=== PATIENT | female | born 1975 | race Caucasian/White ===

== ENCOUNTER 2016-11-25 11:32 | Emergency (ER) | payer BC ==
[2016-11-25 11:50] VITALS: BP 119/82
--- NOTE | 2016-11-25 12:12 | ED Physician Documentation ---
PD HPI SKIN - Stated complaint Stated Complaint: FACIAL ABCESS - Chief complaint Chief Complaint: Wound - History obtained from History obtained from: Patient - History of Present Illness Timing - onset: How many days ago (2-3) Timing - duration: Days Timing - details: Gradual onset Location: Face (has sore right cheek that has slowly increased coouple days, draining some today.) Quality / character: Painful, Discolored (red), Swelling Associated symptoms: No: Fever, N/V/D Similar symptoms before: Has not had sx before Recently seen: Not recently seen Review of Systems Constitutional: denies: Fever, Chills GI: denies: Nausea, Vomiting PD PAST MEDICAL HISTORY - Past Medical History Past Medical History: Yes Endocrine/Autoimmune: None Psych: Depression, Anxiety - Present Medications Home Medications: Ambulatory Orders Medication Instructions Recorded Confirmed Dextroamphetamine/Amphetamine 11/25/16 [Adderall Xr 30 mg Capsule] Doxycycline Hyclate 100 mg PO 11/25/16 11/25/16 Mupirocin 1 applic TP TID #15 oint...g. 11/25/16 Propranolol HCl 20 mg PO 11/25/16 Sertraline HCl [Zoloft] 100 mg PO 11/25/16 Sulfamethox/Trimeth 800/160 1 each PO BID #14 tablet 11/25/16 [Bactrim Ds 800/160] buPROPion [Wellbutrin Sr] 150 mg PO BID 11/25/16 11/25/16 cloNIDine 0.2 MG PATCH 11/25/16 [Dagegmoi-Wcu-6] - Allergies Allergies/Adverse Reactions: Allergies Allergy/AdvReac Type Severity Reaction Status Date / Time No Known Drug Allergies Allergy Verified 11/25/16 11:46 - Social History Does the pt smoke?: No Smoking Status: Never smoker PD ED PE NORMAL - Vitals Vital signs reviewed: Yes - General General: Alert and oriented X 3, No acute distress, Well developed/nourished - HEENT HEENT: Ears normal, Pharynx benign - Neck Neck: Supple, no meningeal sign, No adenopathy - Derm Derm: Normal color, Warm and dry, Other (right cheek with redness and small local ulcerative lesion about 2 mm. Mild drainage. 2-3 mm area redness right upper forehead c/w early other infection. ) Results - Vitals Vitals: Vital Signs - 24 hr 11/25/16 11:47 Temperature 36.6 C Heart Rate 90 Respiratory 16 Rate Blood Pressure 119/82 H O2 Saturation 98 Oxygen O2 Source Room air PD MEDICAL DECISION MAKING - ED course Complexity details: considered differential (facial sore without underlying fluctuance. Looks likely staph. Will treat topical and oral. ), d/w patient Departure - Departure Disposition: 01 Home, Self Care Clinical Impression: Facial abscess Condition: Stable Record reviewed to determine appropriate education?: Yes Instructions: ED Staph Infec Abx Tx Only Follow-Up: Markos Marion MD [Primary Care Provider] - Prescriptions: Sulfamethox/Trimeth 800/160 [Bactrim Ds 800/160] 1 each PO BID #14 tablet Mupirocin 1 applic TP TID #15 oint...g. Comments: Use of Bactrim twice daily for a week for the infection. Also can use mupirocin topical antibiotic on the several sores. Also take a small dab of the mupirocin and working into your fingernail beds and a little around the rim of your nostrils as these can be hiding places for the germs as well. Recheck if not improving over the next few days. Tylenol or ibuprofen if needed for pains. Discharge Date/Time: 11/25/16 12:36
[2016-11-25] MEDS ORDERED: SULFAMETH/TRIMETH DS 800/160 MG TABLET PO STA (12:20)
[2016-11-25] MEDS ORDERED: SULFAMETH/TRIMETH DS 800/160 MG TABLET PO ONE (12:34)
== END 2016-11-25 12:36 | disposition home or self-care (01) ==
LOC: ED 11:32
DX: L02.01 Cutaneous abscess of face (principal)
CPT/HCPCS: 99283; A9270

== ENCOUNTER 2019-02-13 17:50 | Outpatient (CLI) | payer OTHER | END 2019-02-13 17:51 | disposition critical access hospital (66) | LOC: EMS 17:50 | PROVIDERS: ATTEND Surgery | DX: R45.89 Other symptoms and signs involving emotional state (principal) | CPT/HCPCS: A0425; A0429 ==

== ENCOUNTER 2019-02-13 18:07 | Emergency (ER) | payer BC, OTHER ==
[2019-02-13] MEDS ORDERED: KETOROLAC 30 MG/ML VIAL IVP STA (18:18)
[2019-02-13] MEDS ORDERED: KETAMINE 500 MG/10 ML VIAL IVP STA (18:19)
--- NOTE | 2019-02-13 18:21 | ED Physician Documentation ---
PD HPI MHE - Stated complaint Stated Complaint: DEPRESSION - Chief complaint Chief Complaint: MHE - History obtained from History obtained from: Patient - History of Present Illness Primary symptom: Depression (43-year-old woman with long-standing depression on Zoloft, Adderall. Over the last week or so she is been more depressed. She has no suicidal ideation. She has been compliant with her medications. She denies any substance issues. Her only other health issue is sciatica.) Review of Systems Constitutional: reports: Reviewed and negative Cardiac: reports: Reviewed and negative Respiratory: reports: Reviewed and negative PD PAST MEDICAL HISTORY - Past Medical History Endocrine/Autoimmune: None Psych: Depression, Anxiety - Present Medications Home Medications: Ambulatory Orders Medication Instructions Recorded Confirmed Dextroamphetamine/Amphetamine 2 tab PO DAILY 11/25/16 02/13/19 [Adderall Xr 30 mg Capsule] Propranolol HCl 20 mg PO DAILY 11/25/16 02/13/19 Sertraline HCl [Zoloft] 100 mg PO DAILY 11/25/16 02/13/19 buPROPion [Wellbutrin Sr] 150 mg PO BID 11/25/16 02/13/19 cloNIDine 0.2 MG PATCH 1 tab PO DAILY 11/25/16 02/13/19 [Pnkjlulj-Exv-4] Gabapentin 600 mg PO TID 02/13/19 02/13/19 Propranolol HCl 20 mg PO DAILY 02/13/19 02/13/19 diazePAM [Valium] 5 - 10 mg PO TID PRN #7 tablet 02/13/19 - Allergies Allergies/Adverse Reactions: Allergies Allergy/AdvReac Type Severity Reaction Status Date / Time No Known Drug Allergies Allergy Verified 02/13/19 18:18 - Social History Does the pt smoke?: No Smoking Status: Never smoker PD ED PE NORMAL - Vitals Vital signs reviewed: Yes - General General: Alert and oriented X 3, Other (Tearful but cooperative, pleasant) - HEENT HEENT: PERRL, EOMI - Neck Neck: Supple, no meningeal sign, No bony TTP - Neuro Neuro: Alert and oriented X 3, fund raiser 2-12 intact, No motor deficit, No sensory deficit, Normal speech Results - Vitals Vitals: Vital Signs - 24 hr 02/13/19 02/13/19 02/13/19 18:10 18:55 19:20 Temperature 37.1 C Heart Rate 66 75 62 Respiratory 20 16 16 Rate Blood Pressure 127/92 H 148/93 H 131/83 H O2 Saturation 100 100 100 Oxygen O2 Source Room air PD MEDICAL DECISION MAKING - ED course ED course: This is a 43-year-old woman with depression, no suicidal ideation. We discussed options including hospitalization which she declined. She think she will need something to help her sleep tonight and I also discussed the possibility of a trial of ketamine which she seemed to want to do. She was administered a dose of 0.5 mg/kg over 40 minutes. To this she had some intolerable side effects, she felt out of control, the infusion was stopped about three quarters of the way through. Subsequent to that, once the side effects were off she actually did feel better from a depression standpoint she was given 5 mg of Valium to go. Departure - Departure Disposition: 01 Home, Self Care Clinical Impression: Depression Qualifiers: Depression Type: major depressive disorder Major depression recurrence: recurrent Active/Remission status: currently active Major depression episode severity: moderate Qualified Code(s): F33.1 - Major depressive disorder, recur rent, moderate Condition: Good Record reviewed to determine appropriate education?: Yes Instructions: ED Depression Prescriptions: diazePAM [Valium] 5 - 10 mg PO TID PRN #7 tablet PRN Reason: Spasms Comments: Return anytime if worse, follow-up with Dr. Harding, call his office tomorrow. I would also consider counseling.
[2019-02-13 19:22] VITALS: BP 131/83
[2019-02-13] MEDS ORDERED: diazePAM 5 MG TABLET PO STA (19:28)
== END 2019-02-13 19:40 | disposition home or self-care (01) ==
LOC: EDUNIT# → ED 18:07
DX: F33.1 Major depressive disorder, recurrent, moderate (principal); T41.295A Adverse effect of other general anesthetics, initial encounter; Y92.538 Other ambulatory health services establishments as the place of occurrence of the external cause
CPT/HCPCS: 96374; 99283; A9270

== ENCOUNTER 2019-09-25 21:16 | Emergency (ER) | payer SELFPAY ==
[2019-09-25 21:28] VITALS: BP 124/78
[2019-09-25] MEDS ORDERED: CETIRIZINE 10 MG TABLET PO STA (21:48)
--- NOTE | 2019-09-25 21:48 | ED Physician Documentation ---
History of Present Illness - Stated complaint Stated Complaint: BUG BIT ON BACK - Chief complaint Chief Complaint: General - History obtained from History obtained from: Patient (The patient is a 43-year-old female who presents with a chief complaint of bug bite to the left side of her back patient thinks that she might of been stung by some sort of insect or possibly bitten by a spider she reports redness swelling and discomfort she did not try any treatment prior to arriva) Review of Systems Constitutional: reports: Reviewed and negative Eyes: reports: Reviewed and negative Ears: reports: Reviewed and negative Nose: reports: Reviewed and negative Throat: reports: Reviewed and negative Cardiac: reports: Reviewed and negative Respiratory: reports: Reviewed and negative GI: reports: Reviewed and negative : reports: Reviewed and negative Skin: reports: Bite / sting Musculoskeletal: reports: Reviewed and negative Neurologic: reports: Reviewed and negative Psychiatric: reports: Reviewed and negative Endocrine: reports: Reviewed and negative Immunocompromised: reports: Reviewed and negative PD PAST MEDICAL HISTORY - Past Medical History Past Medical History: Yes Cardiovascular: None Respiratory: None Neuro: None Endocrine/Autoimmune: None GI: None 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 : None HEENT: None Psych: Depression, Anxiety Musculoskeletal: None Derm: None - Past Surgical History Past Surgical History: Yes General: Appendectomy - Present Medications Home Medications: Ambulatory Orders Medication Instructions Recorded Confirmed Dextroamphetamine/Amphetamine 2 tab PO DAILY 11/25/16 02/13/19 [Adderall Xr 30 mg Capsule] Propranolol HCl 20 mg PO DAILY 11/25/16 02/13/19 Sertraline HCl [Zoloft] 100 mg PO DAILY 11/25/16 02/13/19 buPROPion [Wellbutrin Sr] 150 mg PO BID 11/25/16 02/13/19 cloNIDine 0.2 MG PATCH 1 tab PO DAILY 11/25/16 02/13/19 [Ojnleyav-Vla-6] Gabapentin 600 mg PO TID 02/13/19 02/13/19 Propranolol HCl 20 mg PO DAILY 02/13/19 02/13/19 diazePAM [Valium] 5 - 10 mg PO TID PRN #7 tablet 02/13/19 - Allergies Allergies/Adverse Reactions: Allergies Allergy/AdvReac Type Severity Reaction Status Date / Time No Known Drug Allergies Allergy Verified 02/13/19 18:18 - Social History Does the pt smoke?: No Smoking Status: Never smoker Does the pt drink ETOH?: Yes Does the pt have substance abuse?: No - Immunizations Immunizations are current?: No - POLST Patient has POLST: No PD ED PE NORMAL - Vitals Vital signs reviewed: Yes - General General: Alert and oriented X 3, No acute distress - HEENT HEENT: PERRL - Neck Neck: Supple, no meningeal sign - Cardiac Cardiac: RRR, No murmur - Respiratory Respiratory: Clear bilaterally - Abdomen Abdomen: Normal bowel sounds, Soft, Non tender, Non distended - Back Back: Other (4 x 4 centimeter circumferential area of erythema that is warm no fluctuance or induration or streaking mildly tender to palpation. Area marked circumferentially with a sterile surgical pen.) - Derm Derm: No rash (4 x 4 centimeter circumferential area of erythema that is warm no fluctuance or induration or streaking mildly tender to palpation) - Extremities Extremities: No deformity - Neuro Neuro: Alert and oriented X 3 - Psych Psych: Normal mood, Normal affect PD ED PE EXPANDED - Back Back visual: 1 - rash, swelling Results - Vitals Vitals: Vital Signs - 24 hr 09/25/19 21:26 Temperature 36.4 C L Heart Rate 73 Respiratory 17 Rate Blood Pressure 124/78 O2 Saturation 99 Oxygen O2 Source Room air PD MEDICAL DECISION MAKING - ED course Complexity details: reviewed results, re-evaluated patient, considered differential (Hymenoptera, insect envenomation, allergic reaction, Urticaria.), d/w patient, other (We will treat this patient with cool compresses oral Benadryl and follow-up with her primary care provider tomorrow or return to the emergency department with any concerns.) Departure - Departure Disposition: 01 Home, Self Care Clinical Impression: Allergic reaction Qualifiers: Encounter type: initial encounter Qualified Code(s): T78.40XA - Allergy, unspecified, initial encounter Insect bite Qualifiers: Encounter type: initial encounter Site of insect bite: unspecified site Qualified Code(s): W57.XXXA - Bitten or stung by nonvenomous insect and other nonvenomous arthropods, initial encounter Condition: Stable Instructions: ED Bite Sting Insect Local Allergic React Follow-Up: Alida Moore DO [Primary Care Provider] - Tomorrow Comments: use cold packs and take ibuprofen or tylenol for pain and benadryl as needed as well. follow up with your primary care provider tomorrow for a recheck. Discharge Date/Time: 09/25/19 21:58
[2019-09-25] MEDS ORDERED: IBUPROFEN 800 MG TABLET PO STA (21:49)
== END 2019-09-25 21:58 | disposition home or self-care (01) ==
LOC: ED 21:16
DX: S20.462A Insect bite (nonvenomous) of left back wall of thorax, initial encounter (principal); T78.49XA Other allergy, initial encounter; W57.XXXA Bitten or stung by nonvenomous insect and other nonvenomous arthropods, initial encounter
CPT/HCPCS: 99282; 99283; A9270

== ENCOUNTER 2021-03-18 23:03 | Emergency (ER) | payer MEDICAID ==
[2021-03-18 23:07] VITALS: BP 125/76
--- NOTE | 2021-03-18 23:24 | ED Physician Documentation ---
PD HPI HEENT - Stated complaint Stated Complaint: EAR PX, SORE THROAT - Chief complaint Chief Complaint: Heent - History obtained from History obtained from: Patient - History of Present Illness Timing - onset: Other (this evening) Timing - details: Gradual onset Location: Right ear, Throat Associated symptoms: No: Fever Recently seen: Not recently seen - Additional information Additional information: c/o sore throat and right ear pain that started earlier this evening. Denies fever. She is COVID vaccinated. Review of Systems Constitutional: denies: Fever Ears: reports: Ear pain Throat: reports: Sore throat Respiratory: denies: Dyspnea, Cough PD PAST MEDICAL HISTORY - Past Medical History Cardiovascular: None Respiratory: None Neuro: None Endocrine/Autoimmune: None GI: None DEAN OF EDUCATION: None : None HEENT: None Psych: Depression, Anxiety Musculoskeletal: None Derm: None - Past Surgical History Past Surgical History: Yes General: Appendectomy - Present Medications Home Medications: Ambulatory Orders Medication Instructions Recorded Confirmed Dextroamphetamine/Amphetamine 2 tab PO DAILY 11/25/16 02/13/19 [Adderall Xr 30 mg Capsule] Propranolol HCl 20 mg PO DAILY 11/25/16 02/13/19 Sertraline HCl [Zoloft] 100 mg PO DAILY 11/25/16 02/13/19 buPROPion [Wellbutrin Sr] 150 mg PO BID 11/25/16 02/13/19 cloNIDine 0.2 MG PATCH 1 tab PO DAILY 11/25/16 02/13/19 [Tqqonoro-Gmo-0] Gabapentin 600 mg PO TID 02/13/19 02/13/19 Propranolol HCl 20 mg PO DAILY 02/13/19 02/13/19 diazePAM [Valium] 5 - 10 mg PO TID PRN #7 tablet 02/13/19 - Allergies Allergies/Adverse Reactions: Allergies Allergy/AdvReac Type Severity Reaction Status Date / Time No Known Drug Allergies Allergy Verified 03/18/21 23:05 - Social History Does the pt smoke?: No Smoking Status: Never smoker Does the pt drink ETOH?: Yes Does the pt have substance abuse?: No - Immunizations Immunizations are current?: No - POLST Patient has POLST: No PD ED PE NORMAL - Vitals Vital signs reviewed: Yes - General General: Alert and oriented X 3, No acute distress, Well developed/nourished - HEENT HEENT: Ears normal, Moist mucous membranes, Pharynx benign - Neck Neck: Supple, no meningeal sign - Respiratory Respiratory: No respiratory distress, Clear bilaterally Results - Vitals Vitals: Oxygen O2 Source Room air - Labs Labs: Microbiology 03/18/21 23:44 Group A Strep Throat Culture - Preliminary Throat CULTURE IN PROGRESS. RESULTS TO FOLLOW. Laboratory Tests 03/18/21 23:44 Group A Strep Rapid Negative PD MEDICAL DECISION MAKING - ED course Complexity details: considered differential, d/w patient ED course: normal HEENT exam including posterior oropharynx and bilateral TM/external auditory canals. Rapid strep is negative. Lungs CTA bilaterally. Viral URI suspected, results d/w patient, return precautions discussed. Departure - Departure Disposition: 01 Home, Self Care Clinical Impression: Pharyngitis Condition: Good Instructions: ED Pharyngitis Viral Report Pending Forms: Activity restrictions Discharge Date/Time: 03/19/21 00:14
[2021-03-18 23:58] LABS: RAPID STREP SCREEN Negative (Negative)
== END 2021-03-19 00:14 | disposition home or self-care (01) ==
LOC: ED 23:03
DX: J02.9 Acute pharyngitis, unspecified (principal)
CPT/HCPCS: 87070; 87430; 99282; 99283

== ENCOUNTER 2021-08-16 16:56 | Emergency (ER) | payer MEDICAID ==
[2021-08-16] MEDS ORDERED: ONDANSETRON 4 MG/2 ML VIAL IVP STA (17:23)
[2021-08-16] MEDS ORDERED: HYDROmorphone 1 MG/ML CARPUJECT IVP STA ×2 (17:23→20:05)
--- NOTE | 2021-08-16 17:23 | ED Physician Documentation ---
PD HPI ABD PAIN - Stated complaint Stated Complaint: R ABD PX - Chief complaint Chief Complaint: Abd Pain - History obtained from History obtained from: Patient - Additional information Additional information: 45-year-old woman who had an appendectomy about 2 years ago presents with sudden onset right mid to upper abdominal pain starting around 4 PM today. It is not associated with nausea, eating, urinary complaints. She has been constipated for the last few days for unclear reasons. Denies possibility of . No radiation of the pain. Nothing makes it better or worse. 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 : None HEENT: None Psych: Depression, Anxiety Musculoskeletal: None Derm: None - Past Surgical History Past Surgical History: Yes General: Appendectomy - Present Medications Home Medications: Ambulatory Orders Medication Instructions Recorded Confirmed Dextroamphetamine/Amphetamine 2 tab PO DAILY 11/25/16 02/13/19 [Adderall Xr 30 mg Capsule] Propranolol HCl 20 mg PO DAILY 11/25/16 02/13/19 Sertraline HCl [Zoloft] 100 mg PO DAILY 11/25/16 02/13/19 buPROPion [Wellbutrin Sr] 150 mg PO BID 11/25/16 02/13/19 cloNIDine 0.2 MG PATCH 1 tab PO DAILY 11/25/16 02/13/19 [Pzicxumw-Ous-4] Gabapentin 600 mg PO TID 02/13/19 02/13/19 Propranolol HCl 20 mg PO DAILY 02/13/19 02/13/19 diazePAM [Valium] 5 - 10 mg PO TID PRN #7 tablet 02/13/19 Oxycodone HCl/Acetaminophen 1 - 2 each PO Q6H PRN #10 tablet 08/16/21 [Percocet 5-325 mg Tablet] - Allergies Allergies/Adverse Reactions: Allergies Allergy/AdvReac Type Severity Reaction Status Date / Time No Known Drug Allergies Allergy Verified 08/16/21 17:12 - Social History Does the pt smoke?: No Smoking Status: Never smoker Does the pt drink ETOH?: Yes Does the pt have substance abuse?: No - Immunizations Immunizations are current?: No - POLST Patient has POLST: No PD ED PE NORMAL - Vitals Vital signs reviewed: Yes - General General: Alert and oriented X 3, No acute distress - HEENT HEENT: PERRL, EOMI - Neck Neck: Supple, no meningeal sign, No bony TTP - Cardiac Cardiac: RRR, No murmur - Respiratory Respiratory: No respiratory distress, Clear bilaterally - Abdomen Abdomen: Normal bowel sounds, Soft, Other (Mild tenderness in the right upper quadrant and right mid abdomen without surgical signs, equivocal Houser sign I would say.) - Back Back: No CVA TTP, No spinal TTP - Derm Derm: Normal color, Warm and dry - Extremities Extremities: No edema, No calf tenderness / cord - Neuro Neuro: Alert and oriented X 3, Normal speech Results - Vitals Vitals: Vital Signs - 24 hr 08/16/21 08/16/21 17:05 19:12 Temperature 36.3 C L 36.5 C Heart Rate 78 75 Respiratory 14 18 Rate Blood Pressure 128/79 119/75 O2 Saturation 100 96 Oxygen O2 Source Room air - Labs Labs: Laboratory Tests 08/16/21 08/16/21 08/16/21 17:09 17:44 17:44 WBC 6.5 RBC 4.56 Hgb 13.9 Hct 40.3 MCV 88.4 MCH 30.5 MCHC 34.5 RDW 12.5 Plt Count 230 MPV 8.8 Neut # (Auto) 3.9 Lymph # (Auto) 2.0 [place] # (Auto) 0.4 Eos # (Auto) 0.2 Baso # (Auto) 0.0 Absolute Nucleated RBC 0.00 Nucleated RBC % 0.0 Sodium 136 Potassium 3.8 Chloride 102 Carbon Dioxide 25 Anion Gap 9.0 BUN 9 Creatinine 0.8 Estimated GFR (MDRD) 78 L Glucose 89 Calcium 9.1 Total Bilirubin 0.6 AST 22 ALT 22 Alkaline Phosphatase 62 Total Protein 6.9 Albumin 4.2 Globulin 2.7 Albumin/Globulin Ratio 1.6 Lipase 32 Urine Color YELLOW Urine Clarity CLEAR Urine pH 6.0 Ur Specific [place] 1.010 Urine Protein NEGATIVE Urine Glucose (UA) NEGATIVE Urine Ketones NEGATIVE Urine Occult Blood NEGATIVE Urine Nitrite NEGATIVE Urine Bilirubin NEGATIVE Urine Urobilinogen 0.2 (NORMAL) Ur Leukocyte Esterase NEGATIVE Ur Microscopic Review NOT INDICATED Urine Culture Comments NOT INDICATED Urine HCG, Qual NEGATIVE - Rads (name of study) CT A/P Radiology: EMP read contemporaneously PD MEDICAL DECISION MAKING - ED course ED course: 45-year-old woman with sudden onset right mid abdominal pain. Fairly benign exam, labs negative, test negative. CT suggesting recently ruptured hemorrhagic cyst. Nontender on reexamination prior to discharge and comfortable after pain control here. Departure - Departure Disposition: 01 Home, Self Care Clinical Impression: Abdominal pain Condition: Good Record reviewed to determine appropriate education?: Yes Instructions: ED Pelvic Pain [facility] Prescriptions: Oxycodone HCl/Acetaminophen [Percocet 5-325 mg Tablet] 1 - 2 each PO Q6H PRN #10 tablet PRN Reason: pain Comments: I sent your prescription electronically to [facility] in [place]. As discussed your labs all look very normal, CT suggesting a ruptured right ovarian cyst which I suspect is the cause of your pain. In that case your pain should be gone over the next couple of days. Return for new or worsening symptoms and follow-up with your primary care physician in about 3 days for rec heck. I am prescribing a short course of narcotic pain medication for you. These are potentially dangerous and addictive medications that should be used carefully. These medications may constipate you. Take an jrny-uob-bofrydi stool softener (docusate) twice daily with plenty of water while taking these medications. If you go 24 hours without a bowel movement, take [id number]-[id number] miralax, per p gal instructions. Do not drink or drive while taking these medications. If you received narcotic or sedating medications while in the emergency department, do not drive for 24 hours. Store this medication in a safe, secure place and out of reach of children. It is a violation of federal law to give or sell this medication to another person or to use in a manner other than prescribed. The ED will not refill narcotic prescriptions, including prescriptions lost or stolen. To dispose of unwanted medications: 1. [facility] at [address] in [place] has a medication drop box. They accept prescription medications (in pill form) Monday through Monday 9:00 a.m. to 5:00 p.m. 2. The [facility] accepts prescription medications (in pill form only) for disposal year round. Call for more information. 3. Contact the [facility] for the next [facility] sponsored prescription drug collection event. , [phone], or [phone]; Note that many narcotic pain relievers also contain Tylenol/acetaminophen. Please ensure that your total dose of acetaminophen from all sources does not exceed 3 g (3000 mg) per day. Discharge Date/Time: 08/16/21 20:26
[2021-08-16 17:31] LABS: BILIRUBIN,URINE NEGATIVE (NEGATIVE); GLUCOSE, URINE (UA) NEGATIVE (NEGATIVE); KETONES,URINE (UA) NEGATIVE (NEGATIVE); LEUKOCYTE ESTERASE, URINE NEGATIVE (NEGATIVE); NITRITE,URINE NEGATIVE (NEGATIVE); OCCULT BLOOD,URINE NEGATIVE (NEGATIVE); PROTEIN,URINE NEGATIVE (NEGATIVE); UROBILINOGEN,URINE 0.2 (NORMAL) E.U./dL (NORMAL)
[2021-08-16 17:36] LABS: CLARITY,URINE CLEAR (CLEAR); HCG UR QUAL NEGATIVE
[2021-08-16 17:49] LABS: BASOPHILS % (AUTO) 0.5 %; EOSINOPHILS # (AUTO) 0.2 10^3/uL (0.0-0.7); EOSINOPHILS % (AUTO) 2.3 %; HCT - HEMATOCRIT 40.3 % (37.0-47.0); HGB - HEMOGLOBIN 13.9 g/dL (12.0-16.0); LYMPHOCYTES % (AUTO) 31.3 %; MEAN CORPUSCULAR HEMOGLOBIN 30.5 pg (27.0-31.0); MEAN CORPUSCULAR HGB CONC 34.5 g/dL (32.0-36.0); MEAN CORPUSCULAR VOLUME 88.4 fL (81.0-99.0); MEAN PLATELET VOLUME 8.8 fL (7.9-10.8); MONOCYTES # (AUTO) 0.4 10^3/uL (0.0-1.0); MONOCYTES % (AUTO) 6.3 %; NEUTROPHILS # (AUTO) 3.9 10^3/uL (1.5-6.6); NEUTROPHILS % (AUTO) 59.4 %; PLT - PLATELET COUNT 230 10^3/uL (130-450); RED BLOOD COUNT 4.56 10^6/uL (4.20-5.40); RED CELL DISTRIBUTION WIDTH 12.5 % (12.0-15.0); WHITE BLOOD COUNT 6.5 x10^3/uL (4.8-10.8)
[2021-08-16 18:12] LABS: ALBUMIN 4.2 g/dL (3.2-5.5); ALBUMIN/GLOBULIN RATIO 1.6 (1.0-2.2); BILIRUBIN,TOTAL 0.6 mg/dL (0.2-1.0); CALCIUM 9.1 mg/dL (8.5-10.3); CREATININE 0.8 mg/dL (0.4-1.0); POTASSIUM 3.8 mmol/L (3.5-5.0); TOTAL PROTEIN 6.9 g/dL (6.7-8.2)
[2021-08-16] MEDS ORDERED: IOPAMIDOL-300 100 ML VIAL ONE (18:43)
[2021-08-16 19:16] VITALS: BP 119/75
[2021-08-16] MEDS ORDERED: KETOROLAC 15 MG/ML VIAL IVP STA (19:22)
--- NOTE | 2021-08-16 19:30 | CT Report ---
PROCEDURE: Abdomen/Pelvis W INDICATIONS: IV only, R abd pain CONTRAST: IV CONTRAST: Isovue 300 ml: 100 PO CONTRAST: *NO PO CONTRAST TECHNIQUE: After the administration of intravenous contrast, 5 mm thick sections acquired from the diaphragms to the symphysis. 5 mm thick coronal and sagittal reformats were acquired. For radiation dose reducti on, the following was used: automated exposure control, adjustment of mA and/or kV according to simone ent size. COMPARISON: None. FINDINGS: Image quality: Excellent. ABDOMEN: Lung bases: Lung bases are clear. Heart size is normal. Solid organs: Liver and spleen are normal in size and enhancement. Gallbladder is normal Biliary s ystem is non dilated. Pancreas enhances normally. No adrenal nodules. Kidneys demonstrate normal s ize and enhancement, without hydronephrosis. Peritoneum and bowel: No pericolonic or mesenteric inflammatory changes. No findings of appendicitis or other acute enteric process. Nodes and vessels: No retroperitoneal or mesenteric adenopathy by si ze criteria. Aorta and inferior vena cava are normal in size. Miscellaneous: No ventral hernias. PELVIS: Small volume free pelvic fluid in the right adnexa and right cul-de-sac. Heterogenous uterine attenua tion which may represent fibroids or potentially adenomyosis. Ovaries are normal. Bladder unremarkabl e. Shoulders unremarkable or inguinal lymph nodes. IMPRESSION: No acute finding. Small volume right pelvic free fluid is within physiologic normal limits but is of intermediate densi ty and may represent a ruptured hemorrhagic cyst. Probable multifibroid uterus. Reviewed by: Akbar Serrano MD on 08/16/2021 7:28 PM PDT Approved by: Akbar Serrano MD on 08/16/2021 7:28 PM PDT Station ID: [id number]
[2021-08-16] MEDS ORDERED: oxyCODONE/ACET 5/325 Prepack 4 PO STA (20:05)
[2021-08-16] MEDS ORDERED: IOPAMIDOL-300 100 ML VIAL IVP ONE (21:46)
== END 2021-08-16 20:26 | disposition home or self-care (01) ==
LOC: ED 16:56
DX: R10.11 Right upper quadrant pain (principal)
CPT/HCPCS: 36415; 74177; 80053; 81003; 81025; 83690; 85025; 96374; 96375; 96376; 99283; 99284; J1170; Q9967; 81001; 83735; 87086

== ENCOUNTER 2021-12-17 16:39 | Outpatient (CLI) | payer MEDICAID | END 2021-12-17 16:40 | disposition critical access hospital (66) | LOC: EMS 16:39 | DX: R07.9 Chest pain, unspecified (principal); R11.2 Nausea with vomiting, unspecified; R19.7 Diarrhea, unspecified | CPT/HCPCS: A0425; A0427; A0999 ==

== ENCOUNTER 2021-12-17 16:51 | Emergency (ER) | payer MEDICAID ==
--- OUTSIDE RECORDS SUMMARY | 2021-12-17 17:01 | EXTERNAL MEDICAL SUMMARY RPT | Continuity of Care Document ---
:1975 Author Organization [facility] Address [address] [place] [address] Phone Allergies No information. Encounters No information. Functional Status No information. Immunizations No information. Medications No information. Problems No information. Procedures No information. Results/Labs test date author facility value unit interpret ation Result panel 1 (unknown) (no (unknown) (unknown) (no value) (units (unk nown) date) unknown) (unknown) (no (unknown) (unknown) (no value) (units (unk nown) date) unknown) (unknown) (no (unknown) (unknown) [place], [place] (units ( unknown) date) [id number] unknown) (unknown) (no (unknown) (unknown) Draft (units (unkno wn) date) unknown) (unknown) (no (unknown) (unknown) [facility] ([facility] unknown) (unknown) (no (unknown) (unknown) Internal (units (unkno wn) date) Medicine Office unknown) Visit (unknown) (no (unknown) (unknown) (no value) (units (unk nown) date) unknown) (unknown) (no (unknown) (unknown) [phone] (units (unkno wn) date) unknown) (unknown) (no (unknown) (unknown) 11/04/21 (units (unkno wn) date) unknown) (unknown) (no (unknown) (unknown) Age/Sex: 45 / F (units (unknown) date) Date of unknown) Service: (unknown) (no (unknown) (unknown) Allergies (units (unkn own) date) unknown) (unknown) (no (unknown) (unknown) Attending Dr: (units ( unknown) date) Mitch Alejandra MD unknown) (unknown) (no (unknown) (unknown) : 1975 (units (unknown) date) Acct:[id number] unknown) (unknown) (no (unknown) (unknown) DUST MITES (units (unk nown) date) Allergy (Unknown, unknown) Uncoded 05/14/19 14:15) (unknown) (no (unknown) (unknown) Dept at (units (unkno wn) date) . unknown) (unknown) (no (unknown) (unknown) Documented By: (units (unknown) date) Mitch Alejandra MD unknown) 11/04/21 1418 (unknown) (no (unknown) (unknown) Intake (units (unkno wn) date) unknown) (unknown) (no (unknown) (unknown) Loc: [facility] (units (unkno wn) date) unknown) (unknown) (no (unknown) (unknown) Medical History (units (unknown) date) (Updated 05/18/19 unknown) @ 17:30 by Amanda Burton RN) (unknown) (no (unknown) (unknown) No pertinent (units (u nknown) date) past surgical unknown) history (unknown) (no (unknown) (unknown) PFSH (units (unkno wn) date) unknown) (unknown) (no (unknown) (unknown) POLLEN Allergy (units (unknown) date) (Unknown, Uncoded unknown) 05/14/19 14:15) (unknown) (no (unknown) (unknown) Patient denies (units (unknown) date) medical problems unknown) (unknown) (no (unknown) (unknown) Patient: (units (unkno wn) date) Kaylah Sampson unknown) MR#: [id number] (unknown) (no (unknown) (unknown) Reason For Visit (units (unknown) date) unknown) (unknown) (no (unknown) (unknown) Signed By: (units (unk nown) date) unknown) (unknown) (no (unknown) (unknown) Smoking Status: (units (unknown) date) Former smoker unknown) (unknown) (no (unknown) (unknown) Surgical History (units (unknown) date) (Reviewed unknown) 05/17/19 @ 20:36 by GURWINDER Boudreaux) (unknown) (no (unknown) (unknown) This note may (units ( unknown) date) have been all or unknown) partially generated using voice recognition (unknown) (no (unknown) (unknown) Tobacco + (units (unkn own) date) Substance Use unknown) (unknown) (no (unknown) (unknown) Tobacco Status (units (unknown) date) unknown) (unknown) (no (unknown) (unknown) 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 (units (unknown) date) If there are any unknown) questions, please contact the Medical Records (unknown) (no (unknown) (unknown) may occur. (units (unk nown) date) Occasional unknown) wrong-word or 'sound-alike' substitutions may have (unknown) (no (unknown) (unknown) mold [MOLD] (units (un known) date) Allergy (Unknown, unknown) Verified 05/14/19 14:15) (unknown) (no (unknown) (unknown) occurred due to (units (unknown) date) the inherent unknown) limitations of voice recognition software. Please (unknown) (no (unknown) (unknown) read the note (units ( unknown) date) carefully and unknown) recognize, using context, where these substitutions (unknown) (no (unknown) (unknown) software. 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 errors Result panel 2 (unknown) (no (unknown) (unknown) (no value) (units (unk nown) date) unknown) (unknown) (no (unknown) (unknown) (no value) (units (unk nown) date) unknown) (unknown) (no (unknown) (unknown) [facility] (units ( unknown) date) [id number] unknown) (unknown) (no (unknown) (unknown) Draft (units (unkno wn) date) unknown) (unknown) (no (unknown) (unknown) [facility]) (unknown) (no (unknown) (unknown) Internal Medicine (units (unknown) date) Office Visit unknown) (unknown) (no (unknown) (unknown) (no value) (units (unk nown) date) unknown) (unknown) (no (unknown) (unknown) [phone] (units (unkno wn) date) unknown) (unknown) (no (unknown) (unknown) 11/04/21 (units (unkno wn) date) unknown) (unknown) (no (unknown) (unknown) 11/04/21 [History (units (unknown) date) Confirmed unknown) 11/04/21] (unknown) (no (unknown) (unknown) 11/04/21] (units (unkn own) date) unknown) (unknown) (no (unknown) (unknown) Age/Sex: 45 / F (units (unknown) date) Date of Service: unknown) (unknown) (no (unknown) (unknown) Allergies (units (unkn own) date) unknown) (unknown) (no (unknown) (unknown) Attending Dr: (units ( unknown) date) Mitch Alejandra MD unknown) (unknown) (no (unknown) (unknown) Confirmed (units (unkn own) date) 11/04/21] unknown) (unknown) (no (unknown) (unknown) : 1975 (units (unknown) date) Acct:[id number] unknown) (unknown) (no (unknown) (unknown) DUST MITES (units (unk nown) date) Allergy (Unknown, unknown) Uncoded 11/04/21 14:20) (unknown) (no (unknown) (unknown) Dept at (units (unkno wn) date) . unknown) (unknown) (no (unknown) (unknown) Documented By: (units (unknown) date) Mitch Alejandra MD unknown) 11/04/21 1418 (unknown) (no (unknown) (unknown) Establish Care (units (unknown) date) unknown) (unknown) (no (unknown) (unknown) GI Issues (units (unkn own) date) unknown) (unknown) (no (unknown) (unknown) Intake (units (unkno wn) date) unknown) (unknown) (no (unknown) (unknown) Intake Note: (units (u nknown) date) unknown) (unknown) (no (unknown) (unknown) Intake performed (units (unknown) date) by: Norma Pascal unknown) (unknown) (no (unknown) (unknown) Intake- Clincial (units (unknown) date) Staff unknown) (unknown) (no (unknown) (unknown) Loc: [facility] (units (unkno wn) date) unknown) (unknown) (no (unknown) (unknown) Medical History (units (unknown) date) (Updated 05/18/19 unknown) @ 17:30 by Amanda Burton RN) (unknown) (no (unknown) (unknown) Medications (units (un known) date) unknown) (unknown) (no (unknown) (unknown) Meet and Greet (units (unknown) date) unknown) (unknown) (no (unknown) (unknown) New Patient (units (un known) date) unknown) (unknown) (no (unknown) (unknown) No pertinent past (units (unknown) date) surgical history unknown) (unknown) (no (unknown) (unknown) PFSH (units (unkno wn) date) unknown) (unknown) (no (unknown) (unknown) PO QPM ##0 (units (unk nown) date) 05/24/16 [History unknown) Confirmed 11/04/21] (unknown) (no (unknown) (unknown) POLLEN Allergy (units (unknown) date) (Unknown, Uncoded unknown) 11/04/21 14:20) (unknown) (no (unknown) (unknown) Patient denies (units (unknown) date) medical problems unknown) (unknown) (no (unknown) (unknown) Patient: (units (unkno wn) date) Kaylah Sampson unknown) MR#: [id number] (unknown) (no (unknown) (unknown) Potential (units (unkn own) date) referral to GI? unknown) (unknown) (no (unknown) (unknown) QPM ##0 05/24/16 (units (unknown) date) [History Confirmed unknown) 11/04/21] (unknown) (no (unknown) (unknown) Reason For Visit (units (unknown) date) unknown) (unknown) (no (unknown) (unknown) Review/Discuss (units (unknown) date) unknown) (unknown) (no (unknown) (unknown) Review/Discuss. (units (unknown) date) unknown) (unknown) (no (unknown) (unknown) Signed By: (units (unk nown) date) unknown) (unknown) (no (unknown) (unknown) Smoking Status: (units (unknown) date) Former smoker unknown) (unknown) (no (unknown) (unknown) Surgical History (units (unknown) date) (Reviewed 05/17/19 unknown) @ 20:36 by GURWINDER Boudreaux) (unknown) (no (unknown) (unknown) This note may (units ( unknown) date) have been all or unknown) partially generated using voice recognition (unknown) (no (unknown) (unknown) Tobacco + (units (unkn own) date) Substance Use unknown) (unknown) (no (unknown) (unknown) Tobacco Status (units (unknown) date) unknown) (unknown) (no (unknown) (unknown) 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- unknown) (unknown) (no (unknown) (unknown) [History (units (unkno wn) date) Confirmed unknown) 11/04/21] (unknown) (no (unknown) (unknown) bupropion HCl 150 (units (unknown) date) mg 24 hr tablet, unknown) extended release 150 mg PO DAILY 11/04/21 (unknown) (no (unknown) (unknown) cholecalciferol (units (unknown) date) (vitamin D3) 50 unknown) mcg (2,000 unit) tablet (Vitamin D3) 4,000 unit (unknown) (no (unknown) (unknown) clonidine HCl 0.2 (units (unknown) date) mg tablet 0.2 mg unknown) PO BEDTIME 09/17/18 [History Confirmed (unknown) (no (unknown) (unknown) cyanocobalamin (units (unknown) date) (vitamin B-12) unknown) 5,000 mcg sublingual tablet (Vitamin B-12) 5,000 (unknown) (no (unknown) (unknown) dextroamphetamine (units (unknown) date) -amphetamine 15 mg unknown) tablet 15 mg PO QPM 11/04/21 [History (unknown) (no (unknown) (unknown) dextroamphetamine (units (unknown) date) -amphetamine ER 30 unknown) mg 24hr capsule,extend release 30 mg PO QAM (unknown) (no (unknown) (unknown) gabapentin 300 mg (units (unknown) date) capsule unknown) (Neurontin) 600 mg PO TID #30 caps 12/25/19 [Rx (unknown) (no (unknown) (unknown) have occurred. (units (unknown) date) If there are any unknown) questions, please contact the Medical Records (unknown) (no (unknown) (unknown) lorazepam 1 mg (units (unknown) date) tablet (Ativan) 1 unknown) mg PO TID PRN anxiety #10 tabs 05/12/19 [Rx (unknown) (no (unknown) (unknown) may occur. (units (unk nown) date) Occasional unknown) wrong-word or 'sound-alike' substitutions may have (unknown) (no (unknown) (unknown) mcg sublingual (units (unknown) date) QPM ##0 10/03/16 unknown) [History Confirmed 11/04/21] (unknown) (no (unknown) (unknown) mold [MOLD] (units (un known) date) Allergy (Unknown, unknown) Verified 11/04/21 14:20) (unknown) (no (unknown) (unknown) occurred due to (units (unknown) date) the inherent unknown) limitations of voice recognition software. Please (unknown) (no (unknown) (unknown) omega (units (unkno wn) date) [id number]-fish oil unknown) 1,000 mg (120 mg-180 mg) capsule (Fish Oil) 1,000 mg PO (unknown) (no (unknown) (unknown) propranolol 20 mg (units (unknown) date) tablet 20 mg PO unknown) BID PRN anxiety/panic 05/12/19 [History (unknown) (no (unknown) (unknown) read the note (units ( unknown) date) carefully and unknown) recognize, using context, where these substitutions (unknown) (no (unknown) (unknown) sertraline 100 mg (units (unknown) date) tablet 150 mg PO unknown) DAILY 11/04/21 [History Confirmed 11/04/21] (unknown) (no (unknown) (unknown) software. 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 errors Result panel 3 (unknown) (no (unknown) (unknown) (no value) (units (unk nown) date) unknown) (unknown) (no (unknown) (unknown) (no value) (units (unk nown) date) unknown) (unknown) (no (unknown) (unknown) (no value) (units (unk nown) date) unknown) (unknown) (no (unknown) (unknown) 11/04/21 (units (unkno wn) date) unknown) (unknown) (no (unknown) (unknown) 14:33 (units (unkno wn) date) unknown) (unknown) (no (unknown) (unknown) [facility] (units ( unknown) date) [id number] unknown) (unknown) (no (unknown) (unknown) Draft (units (unkno wn) date) unknown) (unknown) (no (unknown) (unknown) [facility]) (unknown) (no (unknown) (unknown) Internal Medicine (units (unknown) date) Office Visit unknown) (unknown) (no (unknown) (unknown) (no value) (units (unk nown) date) unknown) (unknown) (no (unknown) (unknown) [phone] (units (unkno wn) date) unknown) (unknown) (no (unknown) (unknown) 11/04/21 (units (unkno wn) date) unknown) (unknown) (no (unknown) (unknown) 11/04/21 [History (units (unknown) date) Confirmed unknown) 11/04/21] (unknown) (no (unknown) (unknown) 11/04/21] (units (unkn own) date) unknown) (unknown) (no (unknown) (unknown) Age/Sex: 45 / F (units (unknown) date) Date of Service: unknown) (unknown) (no (unknown) (unknown) Allergies (units (unkn own) date) unknown) (unknown) (no (unknown) (unknown) Attending Dr: (units ( unknown) date) Mitch Alejandra MD unknown) (unknown) (no (unknown) (unknown) BMI 25.9 (units (un known) date) unknown) (unknown) (no (unknown) (unknown) BP 92/72 (units (un known) date) unknown) (unknown) (no (unknown) (unknown) Blood Pressure (units (unknown) date) Location Lt unknown) brachial (unknown) (no (unknown) (unknown) Confirmed (units (unkn own) date) 11/04/21] unknown) (unknown) (no (unknown) (unknown) : 1975 (units (unknown) date) Acct:[id number] unknown) (unknown) (no (unknown) (unknown) DUST MITES (units (unk nown) date) Allergy (Unknown, unknown) Uncoded 11/04/21 14:20) (unknown) (no (unknown) (unknown) Date of Last (units (u nknown) date) Menstrual Period: unknown) 10/25/21 (unknown) (no (unknown) (unknown) Dept at (units (unkno wn) date) . unknown) (unknown) (no (unknown) (unknown) Documented By: (units (unknown) date) Mitch Alejandra MD unknown) 11/04/21 1418 (unknown) (no (unknown) (unknown) Establish Care (units (unknown) date) unknown) (unknown) (no (unknown) (unknown) GI Issues (units (unkn own) date) unknown) (unknown) (no (unknown) (unknown) Hasn't been to (units (unknown) date) doc in a while. 45 unknown) (unknown) (no (unknown) (unknown) Height 5 ft 9 (units (unknown) date) in unknown) (unknown) (no (unknown) (unknown) Intake (units (unkno wn) date) unknown) (unknown) (no (unknown) (unknown) Intake Note: (units (u nknown) date) unknown) (unknown) (no (unknown) (unknown) Intake performed (units (unknown) date) by: Norma Pascal unknown) (unknown) (no (unknown) (unknown) Intake- Clincial (units (unknown) date) Staff unknown) (unknown) (no (unknown) (unknown) Is last menstrual (units (unknown) date) period known: Yes unknown) (unknown) (no (unknown) (unknown) Last Menstural (units (unknown) date) Cycle + Details unknown) (unknown) (no (unknown) (unknown) Loc: [facility] (units (unkno wn) date) unknown) (unknown) (no (unknown) (unknown) Medical History (units (unknown) date) (Updated 05/18/19 unknown) @ 17:30 by Amanda Burton RN) (unknown) (no (unknown) (unknown) Medications (units (un known) date) unknown) (unknown) (no (unknown) (unknown) Meet and Greet (units (unknown) date) unknown) (unknown) (no (unknown) (unknown) New Patient (units (un known) date) unknown) (unknown) (no (unknown) (unknown) No pertinent past (units (unknown) date) surgical history unknown) (unknown) (no (unknown) (unknown) Oxygen Delivery (units (unknown) date) Method room air unknown) (unknown) (no (unknown) (unknown) PFSH (units (unkno wn) date) unknown) (unknown) (no (unknown) (unknown) PO QPM ##0 (units (unk nown) date) 05/24/16 [History unknown) Confirmed 11/04/21] (unknown) (no (unknown) (unknown) POLLEN Allergy (units (unknown) date) (Unknown, Uncoded unknown) 11/04/21 14:20) (unknown) (no (unknown) (unknown) Patient denies (units (unknown) date) medical problems unknown) (unknown) (no (unknown) (unknown) Patient: (units (unkno wn) date) Kaylah Sampson unknown) MR#: [id number] (unknown) (no (unknown) (unknown) Position (units (unkno wn) date) Sitting unknown) (unknown) (no (unknown) (unknown) Potential (units (unkn own) date) referral to GI? unknown) (unknown) (no (unknown) (unknown) Pulse 79 (units (un known) date) unknown) (unknown) (no (unknown) (unknown) Pulse Oximetry (units (unknown) date) (%) 98 unknown) (unknown) (no (unknown) (unknown) Pulse Source (units (u nknown) date) Monitor unknown) (unknown) (no (unknown) (unknown) QPM ##0 05/24/16 (units (unknown) date) [History Confirmed unknown) 11/04/21] (unknown) (no (unknown) (unknown) Reason For Visit (units (unknown) date) unknown) (unknown) (no (unknown) (unknown) Review/Discuss (units (unknown) date) unknown) (unknown) (no (unknown) (unknown) Review/Discuss. (units (unknown) date) unknown) (unknown) (no (unknown) (unknown) Signed By: (units (unk nown) date) unknown) (unknown) (no (unknown) (unknown) Smoking Status: (units (unknown) date) Former smoker unknown) (unknown) (no (unknown) (unknown) States her (units (unk nown) date) psychiatrist use unknown) to fill her meds. (unknown) (no (unknown) (unknown) States may need a (units (unknown) date) lot of things unknown) done. (unknown) (no (unknown) (unknown) States psych doc (units (unknown) date) would like PCP to unknown) manage. 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 unknown) (unknown) (no (unknown) (unknown) Weight 176 lb (units (unknown) date) unknown) (unknown) (no (unknown) (unknown) [History (units (unkno wn) date) Confirmed unknown) 11/04/21] (unknown) (no (unknown) (unknown) bupropion HCl 150 (units (unknown) date) mg 24 hr tablet, unknown) extended release 450 mg PO DAILY 11/04/21 (unknown) (no (unknown) (unknown) cholecalciferol (units (unknown) date) (vitamin D3) 50 unknown) mcg (2,000 unit) tablet (Vitamin D3) 4,000 unit (unknown) (no (unknown) (unknown) clonidine HCl 0.2 (units (unknown) date) mg tablet 0.2 mg unknown) PO BEDTIME 09/17/18 [History Confirmed (unknown) (no (unknown) (unknown) dextroamphetamine (units (unknown) date) -amphetamine 15 mg unknown) tablet 15 mg PO QPM 11/04/21 [History (unknown) (no (unknown) (unknown) dextroamphetamine (units (unknown) date) -amphetamine ER 30 unknown) mg 24hr capsule,extend release 30 mg PO QAM (unknown) (no (unknown) (unknown) gabapentin 300 mg (units (unknown) date) capsule unknown) (Neurontin) 300 mg PO DAILY 11/04/21 [History] (unknown) (no (unknown) (unknown) have occurred. (units (unknown) date) If there are any unknown) questions, please contact the Medical Records (unknown) (no (unknown) (unknown) may occur. (units (unk nown) date) Occasional unknown) wrong-word or 'sound-alike' substitutions may have (unknown) (no (unknown) (unknown) mold [MOLD] (units (un known) date) Allergy (Unknown, unknown) Verified 11/04/21 14:20) (unknown) (no (unknown) (unknown) occurred due to (units (unknown) date) the inherent unknown) limitations of voice recognition software. Please (unknown) (no (unknown) (unknown) omega (units (unkno wn) date) [id number]-fish oil unknown) 1,000 mg (120 mg-180 mg) capsule (Fish Oil) 1,000 mg PO (unknown) (no (unknown) (unknown) propranolol 20 mg (units (unknown) date) tablet 20 mg PO unknown) BID PRN anxiety/panic 05/12/19 [History (unknown) (no (unknown) (unknown) read the note (units ( unknown) date) carefully and unknown) recognize, using context, where these substitutions (unknown) (no (unknown) (unknown) sertraline 100 mg (units (unknown) date) tablet 150 mg PO unknown) DAILY 11/04/21 [History Confirmed 11/04/21] (unknown) (no (unknown) (unknown) software. 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 errors Result panel 4 (unknown) (no (unknown) (unknown) (no value) (units (unk nown) date) unknown) (unknown) (no (unknown) (unknown) Medications: (units (u nknown) date) unknown) (unknown) (no (unknown) (unknown) Orders: (units (unkno wn) date) unknown) (unknown) (no (unknown) (unknown) (no value) (units (unk nown) date) unknown) (unknown) (no (unknown) (unknown) (no value) (units (unk nown) date) unknown) (unknown) (no (unknown) (unknown) 11/04/21 (units (unkno wn) date) unknown) (unknown) (no (unknown) (unknown) 14:33 (units (unkno wn) date) unknown) (unknown) (no (unknown) (unknown) [place] (units ( unknown) date) [id number] unknown) (unknown) (no (unknown) (unknown) Draft (units (unkno wn) date) unknown) (unknown) (no (unknown) (unknown) [facility] ([facility] unknown) (unknown) (no (unknown) (unknown) Hyperlipidemia (units (unknown) date) unknown) (unknown) (no (unknown) (unknown) Hypertension (units (u nknown) date) unknown) (unknown) (no (unknown) (unknown) Internal Medicine (units (unknown) date) Office Visit unknown) (unknown) (no (unknown) (unknown) MUST ESTABLISH (units (unknown) date) CARE WITH A NEW unknown) PRIMARY CARE PHYSICIAN PRIOR TO FURTHER (unknown) (no (unknown) (unknown) Mental and (units (unk nown) date) behavioral problem unknown) (unknown) (no (unknown) (unknown) (no value) (units (unk nown) date) unknown) (unknown) (no (unknown) (unknown) (1) Neuralgia: (units (unknown) date) unknown) (unknown) (no (unknown) (unknown) (2) Abdominal (units ( unknown) date) pain: unknown) (unknown) (no (unknown) (unknown) [id number] (units (unkno wn) date) unknown) (unknown) (no (unknown) (unknown) 11/04/21 (units (unkno wn) date) unknown) (unknown) (no (unknown) (unknown) 11/04/21 [History (units (unknown) date) Confirmed 11/04/21] unknown) (unknown) (no (unknown) (unknown) 11/04/21] (units (unkn own) date) unknown) (unknown) (no (unknown) (unknown) Age/Sex: 45 / F (units (unknown) date) Date of Service: unknown) (unknown) (no (unknown) (unknown) Allergies (units (unkn own) date) unknown) (unknown) (no (unknown) (unknown) Anxiety (10/19/15) (units (unknown) date) unknown) (unknown) (no (unknown) (unknown) Assessment + Plan (units (unknown) date) unknown) (unknown) (no (unknown) (unknown) Attending Dr: Mitch (units (unknown) date) Abdoulaye Alejandra MD unknown) (unknown) (no (unknown) (unknown) Attention deficit (units (unknown) date) hyperactivity unknown) disorder (ADHD) (10/19/15) (unknown) (no (unknown) (unknown) BMI 25.9 (units (un known) date) unknown) (unknown) (no (unknown) (unknown) BP 92/72 (units (un known) date) unknown) (unknown) (no (unknown) (unknown) Blood Pressure (units (unknown) date) Location Lt unknown) brachial (unknown) (no (unknown) (unknown) Brother (units (unknown) date) Suicide unknown) (unknown) (no (unknown) (unknown) C-Reactive Protein (units (unknown) date) Quant 1 Month R10.9 unknown) - Unspecified abdominal pain (unknown) (no (unknown) (unknown) Changed (units (unkno wn) date) unknown) (unknown) (no (unknown) (unknown) Chronic fatigue (units (unknown) date) (10/19/15) unknown) (unknown) (no (unknown) (unknown) Chronic pain (units (u nknown) date) syndrome (05/24/16) unknown) (unknown) (no (unknown) (unknown) Chronic (units (unkno wn) date) right-sided low unknown) back pain (05/24/16) (unknown) (no (unknown) (unknown) Complete Blood (units ( unknown) date) Count AUTO DIFF 1 unknown) Month F32.9 - Major depressive disorder, single (unknown) (no (unknown) (unknown) Comprehensive (units ( unknown) date) Metabolic Panel 1 unknown) Month F32.9 - Major depressive disorder, single (unknown) (no (unknown) (unknown) Confirmed (units (unkn own) date) 11/04/21] unknown) (unknown) (no (unknown) (unknown) : 1975 (units (unknown) date) Acct:[id number] unknown) (unknown) (no (unknown) (unknown) DUST MITES Allergy (units (unknown) date) (Unknown, Uncoded unknown) 11/04/21 14:20) (unknown) (no (unknown) (unknown) Date of Last (units (u nknown) date) Menstrual Period: unknown) 10/25/21 (unknown) (no (unknown) (unknown) Depression (units (unk nown) date) (10/19/15) unknown) (unknown) (no (unknown) (unknown) Dept at (units (unkno wn) date) . unknown) (unknown) (no (unknown) (unknown) Documented By: (units (unknown) date) Mitch Alejandra MD unknown) 11/04/21 1418 (unknown) (no (unknown) (unknown) Episodic (units (unkno wn) date) tension-type unknown) headache, not intractable (10/19/15) (unknown) (no (unknown) (unknown) Establish Care (units (unknown) date) unknown) (unknown) (no (unknown) (unknown) Family History (units (unknown) date) (Updated 11/04/21 @ unknown) 14:39 by Mitch Alejandra MD) (unknown) (no (unknown) (unknown) Father (units (unknown) date) Parkinsonism unknown) (unknown) (no (unknown) (unknown) From gabapentin (units (unknown) date) (Neurontin) unknown) (unknown) (no (unknown) (unknown) GI Issues (units (unkn own) date) unknown) (unknown) (no (unknown) (unknown) Hasn't been to doc (units (unknown) date) in a while. 45 unknown) (unknown) (no (unknown) (unknown) Height 5 ft 9 (units (unknown) date) in unknown) (unknown) (no (unknown) (unknown) History of back (units (unknown) date) surgery (-2008) unknown) (unknown) (no (unknown) (unknown) Intake (units (unkno wn) date) unknown) (unknown) (no (unknown) (unknown) Intake Note: (units (u nknown) date) unknown) (unknown) (no (unknown) (unknown) Intake performed (units (unknown) date) by: Norma Pascal unknown) (unknown) (no (unknown) (unknown) Intake- Clincial (units (unknown) date) Staff unknown) (unknown) (no (unknown) (unknown) Is last menstrual (units (unknown) date) period known: Yes unknown) (unknown) (no (unknown) (unknown) Last Menstural (units (unknown) date) Cycle + Details unknown) (unknown) (no (unknown) (unknown) Lipid Panel 1 (units ( unknown) date) Month F32.9 - Major unknown) depressive disorder, single episode, (unknown) (no (unknown) (unknown) Loc: [facility] (units (unkno wn) date) unknown) (unknown) (no (unknown) (unknown) M79.2 - Neuralgia (units (unknown) date) and neuritis, unknown) unspecified, R10.9 - Unspecified abdominal pain, (unknown) (no (unknown) (unknown) MM screening mammo (units (unknown) date) BI 1 Month F32.9 - unknown) Major depressive disorder, single episode, (unknown) (no (unknown) (unknown) Medical History (units (unknown) date) (Updated 11/04/21 @ unknown) 14:46 by Mitch Alejandra MD) (unknown) (no (unknown) (unknown) Medications (units (un known) date) unknown) (unknown) (no (unknown) (unknown) Meet and Greet (units (unknown) date) unknown) (unknown) (no (unknown) (unknown) Mother (units (unknown) date) Myocardial infarct unknown) (unknown) (no (unknown) (unknown) New (units (unkno wn) date) unknown) (unknown) (no (unknown) (unknown) New Patient (units (un known) date) unknown) (unknown) (no (unknown) (unknown) Orders (units (unkno wn) date) unknown) (unknown) (no (unknown) (unknown) Oxygen Delivery (units (unknown) date) Method room air unknown) (unknown) (no (unknown) (unknown) PFSH (units (unkno wn) date) unknown) (unknown) (no (unknown) (unknown) PO QPM ##0 (units (unk nown) date) 05/24/16 [History unknown) Confirmed 11/04/21] (unknown) (no (unknown) (unknown) POLLEN Allergy (units (unknown) date) (Unknown, Uncoded unknown) 11/04/21 14:20) (unknown) (no (unknown) (unknown) Patient: (units (unkno wn) date) Kaylah Sampson unknown) MR#: [id number] (unknown) (no (unknown) (unknown) Position (units (unkno wn) date) Sitting unknown) (unknown) (no (unknown) (unknown) Potential referral (units (unknown) date) to GI? unknown) (unknown) (no (unknown) (unknown) Pulse 79 (units (un known) date) unknown) (unknown) (no (unknown) (unknown) Pulse Oximetry (%) (units (unknown) date) 98 unknown) (unknown) (no (unknown) (unknown) Pulse Source (units (u nknown) date) Monitor unknown) (unknown) (no (unknown) (unknown) QPM ##0 05/24/16 (units (unknown) date) [History Confirmed unknown) 11/04/21] (unknown) (no (unknown) (unknown) R53.82 - Chronic (units (unknown) date) fatigue, unknown) unspecified (unknown) (no (unknown) (unknown) R53.82 - Chronic (units (unknown) date) fatigue, unknown) unspecified, Z12.31 - Encounter for screening (unknown) (no (unknown) (unknown) REFILLS. 600 mg (units (unknown) date) (2 x 300 mg) PO TID unknown) 30 caps 0RF (unknown) (no (unknown) (unknown) Reason For Visit (units (unknown) date) unknown) (unknown) (no (unknown) (unknown) Review/Discuss (units (unknown) date) unknown) (unknown) (no (unknown) (unknown) Review/Discuss. (units (unknown) date) unknown) (unknown) (no (unknown) (unknown) Rosacea (06/09/17) (units (unknown) date) unknown) (unknown) (no (unknown) (unknown) S/P knee surgery (units (unknown) date) (-2006) unknown) (unknown) (no (unknown) (unknown) Signed By: (units (unk nown) date) unknown) (unknown) (no (unknown) (unknown) Smoking Status: (units (unknown) date) Former smoker unknown) (unknown) (no (unknown) (unknown) States her (units (unk nown) date) psychiatrist use to unknown) fill her meds. (unknown) (no (unknown) (unknown) States may need a (units (unknown) date) lot of things done. unknown) (unknown) (no (unknown) (unknown) States psych doc (units (unknown) date) would like PCP to unknown) manage. (unknown) (no (unknown) (unknown) Surgical History (units (unknown) date) (Updated 11/04/21 @ unknown) 14:37 by Mitch Alejandra MD) (unknown) (no (unknown) (unknown) TSH w/ Reflex to (units (unknown) date) FT4 1 Month F32.9 - unknown) Major depressive disorder, single episode, (unknown) (no (unknown) (unknown) This note may have (units (unknown) date) been all or unknown) partially generated using voice recognition (unknown) (no (unknown) (unknown) Tissue (units (unkno wn) date) Transglutaminase unknown) IgA 1 Month R10.9 - Unspecified abdominal pain (unknown) (no (unknown) (unknown) Tissue (units (unkno wn) date) Transglutaminase unknown) IgG 1 Month R10.9 - Unspecified abdominal pain (unknown) (no (unknown) (unknown) To gabapentin (units ( unknown) date) (Neurontin) 300 mg unknown) PO DAILY (unknown) (no (unknown) (unknown) Tobacco + (units (unkn own) date) Substance Use unknown) (unknown) (no (unknown) (unknown) Tobacco Status (units (unknown) date) unknown) (unknown) (no (unknown) (unknown) Uncomplicated (units ( unknown) date) opioid dependence unknown) (05/24/16) (unknown) (no (unknown) (unknown) Unspecified (units (un known) date) abdominal pain, unknown) R53.82 - Chronic fatigue, unspecified (unknown) (no (unknown) (unknown) 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 unknown) (unknown) (no (unknown) (unknown) Weight 176 lb (units (unknown) date) unknown) (unknown) (no (unknown) (unknown) [History Confirmed (units (unknown) date) 11/04/21] unknown) (unknown) (no (unknown) (unknown) bupropion HCl 150 (units (unknown) date) mg 24 hr tablet, unknown) extended release 450 mg PO DAILY 11/04/21 (unknown) (no (unknown) (unknown) cholecalciferol (units (unknown) date) (vitamin D3) 50 mcg unknown) (2,000 unit) tablet (Vitamin D3) 4,000 unit (unknown) (no (unknown) (unknown) clonidine HCl 0.2 (units (unknown) date) mg tablet 0.2 mg PO unknown) BEDTIME 09/17/18 [History Confirmed (unknown) (no (unknown) (unknown) dextroamphetamine- (units (unknown) date) amphetamine 15 mg unknown) tablet 15 mg PO QPM 11/04/21 [History (unknown) (no (unknown) (unknown) dextroamphetamine- (units (unknown) date) amphetamine ER 30 unknown) mg 24hr capsule,extend release 30 mg PO QAM (unknown) (no (unknown) (unknown) episode, (units (unkno wn) date) unspecified, F90.9 unknown) - Attention-deficit hyperactivity disorder, (unknown) (no (unknown) (unknown) gabapentin 300 mg (units (unknown) date) PO BID 60 caps 5RF unknown) (unknown) (no (unknown) (unknown) gabapentin 300 mg (units (unknown) date) capsule (Neurontin) unknown) 300 mg PO DAILY 11/04/21 [History (unknown) (no (unknown) (unknown) gabapentin 300 mg (units (unknown) date) capsule 300 mg PO unknown) BID #60 caps 11/04/21 [Rx Confirmed (unknown) (no (unknown) (unknown) have occurred. If (units (unknown) date) there are any unknown) questions, please contact the Medical Records (unknown) (no (unknown) (unknown) mammogram for (units ( unknown) date) malignant neoplasm unknown) of breast (unknown) (no (unknown) (unknown) may occur. (units (unk nown) date) Occasional unknown) wrong-word or 'sound-alike' substitutions may have (unknown) (no (unknown) (unknown) mold [MOLD] (units (un known) date) Allergy (Unknown, unknown) Verified 11/04/21 14:20) (unknown) (no (unknown) (unknown) occurred due to (units (unknown) date) the inherent unknown) limitations of voice recognition software. Please (unknown) (no (unknown) (unknown) omega (units (unkno wn) date) 0-dis-alx-fish oil unknown) 1,000 mg (120 mg-180 mg) capsule (Fish Oil) 1,000 mg PO (unknown) (no (unknown) (unknown) propranolol 20 mg (units (unknown) date) tablet 20 mg PO BID unknown) PRN anxiety/panic 05/12/19 [History (unknown) (no (unknown) (unknown) read the note (units ( unknown) date) carefully and unknown) recognize, using context, where these substitutions (unknown) (no (unknown) (unknown) sertraline 100 mg (units (unknown) date) tablet 150 mg PO unknown) DAILY 11/04/21 [History Confirmed 11/04/21] (unknown) (no (unknown) (unknown) software. 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 (unknown) (no (unknown) (unknown) unspecified type, (units (unknown) date) M79.2 - Neuralgia unknown) and neuritis, unspecified, R10.9 - (unknown) (no (unknown) (unknown) unspecified, F90.9 (units (unknown) date) - Attention-deficit unknown) hyperactivity disorder, unspecified type, Result panel 5 (unknown) (no (unknown) (unknown) (no value) (units (unk nown) date) unknown) (unknown) (no (unknown) (unknown) Medications: (units (u nknown) date) unknown) (unknown) (no (unknown) (unknown) Orders: (units (unkno wn) date) unknown) (unknown) (no (unknown) (unknown) Qualifiers: (units (un known) date) unknown) (unknown) (no (unknown) (unknown) Status: Chronic (units (unknown) date) unknown) (unknown) (no (unknown) (unknown) (no value) (units (unk nown) date) unknown) (unknown) (no (unknown) (unknown) (no value) (units (unk nown) date) unknown) (unknown) (no (unknown) (unknown) 11/04/21 (units (unkno wn) date) unknown) (unknown) (no (unknown) (unknown) 11/04/21 1507 (units ( unknown) date) unknown) (unknown) (no (unknown) (unknown) 14:33 (units (unkno wn) date) unknown) (unknown) (no (unknown) (unknown) [place], [place] (units ( unknown) date) [id number] unknown) (unknown) (no (unknown) (unknown) Attention (units (unkn own) date) deficit-hyperactivi unknown) ty disorder type: unspecified Qualified (unknown) (no (unknown) (unknown) Depression Type: (units (unknown) date) major depressive unknown) disorder Major depression recurrence: (unknown) (no (unknown) (unknown) [facility] ([facility] unknown) (unknown) (no (unknown) (unknown) Hyperlipidemia (units (unknown) date) unknown) (unknown) (no (unknown) (unknown) Hypertension (units (u nknown) date) unknown) (unknown) (no (unknown) (unknown) Internal Medicine (units (unknown) date) Office Visit unknown) (unknown) (no (unknown) (unknown) MUST ESTABLISH (units (unknown) date) CARE WITH A NEW unknown) PRIMARY CARE PHYSICIAN PRIOR TO FURTHER (unknown) (no (unknown) (unknown) Mental and (units (unk nown) date) behavioral problem unknown) (unknown) (no (unknown) (unknown) Signed (units (unkno wn) date) unknown) (unknown) (no (unknown) (unknown) (no value) (units (unk nown) date) unknown) (unknown) (no (unknown) (unknown) Not associated (units (unknown) date) with eating unknown) anything particular or eating or not eating or (unknown) (no (unknown) (unknown) (1) Neuralgia: (units (unknown) date) unknown) (unknown) (no (unknown) (unknown) (2) Irritable (units ( unknown) date) bowel syndrome with unknown) diarrhea: (unknown) (no (unknown) (unknown) (3) Attention (units ( unknown) date) deficit unknown) hyperactivity disorder (ADHD): (unknown) (no (unknown) (unknown) (4) Anxiety: (units (u nknown) date) unknown) (unknown) (no (unknown) (unknown) (5) Depression: (units (unknown) date) unknown) (unknown) (no (unknown) (unknown) [id number] (units (unkno wn) date) unknown) (unknown) (no (unknown) (unknown) 11/04/21 (units (unkno wn) date) unknown) (unknown) (no (unknown) (unknown) 11/04/21 [History (units (unknown) date) Confirmed 11/04/21] unknown) (unknown) (no (unknown) (unknown) 11/04/21] (units (unkn own) date) unknown) (unknown) (no (unknown) (unknown) 45-year-old female (units (unknown) date) here to establish unknown) care (unknown) (no (unknown) (unknown) Age/Sex: 45 / F (units (unknown) date) Date of Service: unknown) (unknown) (no (unknown) (unknown) Allergies (units (unkn own) date) unknown) (unknown) (no (unknown) (unknown) Also wonders if at (units (unknown) date) age 45 there is unknown) thing she should be doing that she has not (unknown) (no (unknown) (unknown) Anxiety (10/19/15) (units (unknown) date) unknown) (unknown) (no (unknown) (unknown) Assessment + Plan (units (unknown) date) unknown) (unknown) (no (unknown) (unknown) Attending DrArron Meyer (units (unknown) date) Abdoulaye Alejandra MD unknown) (unknown) (no (unknown) (unknown) Attention deficit (units (unknown) date) hyperactivity unknown) disorder (ADHD) (10/19/15) (unknown) (no (unknown) (unknown) BMI 25.9 (units (un known) date) unknown) (unknown) (no (unknown) (unknown) BP 92/72 (units (un known) date) unknown) (unknown) (no (unknown) (unknown) Blood Pressure (units (unknown) date) Location Lt unknown) brachial (unknown) (no (unknown) (unknown) Brother (units (unknown) date) Suicide unknown) (unknown) (no (unknown) (unknown) C-Reactive Protein (units (unknown) date) Quant 1 Month R10.9 unknown) - Unspecified abdominal pain (unknown) (no (unknown) (unknown) Changed (units (unkno wn) date) unknown) (unknown) (no (unknown) (unknown) Chief Complaint: (units (unknown) date) Establish care unknown) (unknown) (no (unknown) (unknown) Chronic fatigue (units (unknown) date) (10/19/15) unknown) (unknown) (no (unknown) (unknown) Chronic pain (units (u nknown) date) syndrome (05/24/16) unknown) (unknown) (no (unknown) (unknown) Chronic (units (unkno wn) date) right-sided low unknown) back pain (05/24/16) (unknown) (no (unknown) (unknown) Code(s): F90.9 - (units (unknown) date) Attention-deficit unknown) hyperactivity disorder, unspecified type (unknown) (no (unknown) (unknown) Complete Blood (units ( unknown) date) Count AUTO DIFF 1 unknown) Month F32.9 - Major depressive disorder, single (unknown) (no (unknown) (unknown) Comprehensive (units ( unknown) date) Metabolic Panel 1 unknown) Month F32.9 - Major depressive disorder, single (unknown) (no (unknown) (unknown) Confirmed (units (unkn own) date) 11/04/21] unknown) (unknown) (no (unknown) (unknown) : 1975 (units (unknown) date) Acct:[id number] unknown) (unknown) (no (unknown) (unknown) D[facility]ES Allergy (units (unknown) date) (Unknown, Uncoded unknown) 11/04/21 14:20) (unknown) (no (unknown) (unknown) Date of Last (units (u nknown) date) Menstrual Period: unknown) 10/25/21 (unknown) (no (unknown) (unknown) Depression (units (unk nown) date) (10/19/15) unknown) (unknown) (no (unknown) (unknown) Dept at (units (unkno wn) date) . unknown) (unknown) (no (unknown) (unknown) Documented By: (units (unknown) date) Mitch Alejandra MD unknown) 11/04/21 1418 (unknown) (no (unknown) (unknown) Episodic (units (unkno wn) date) tension-type unknown) headache, not intractable (10/19/15) (unknown) (no (unknown) (unknown) Establish Care (units (unknown) date) unknown) (unknown) (no (unknown) (unknown) F33.41 - Major (units (unknown) date) depressive unknown) disorder, recurrent, in partial remission (unknown) (no (unknown) (unknown) Family History (units (unknown) date) (Reviewed 11/04/21 unknown) @ 15:04 by Mitch Alejandra MD) (unknown) (no (unknown) (unknown) Father (units (unknown) date) Parkinsonism unknown) (unknown) (no (unknown) (unknown) From gabapentin (units (unknown) date) (Neurontin) unknown) (unknown) (no (unknown) (unknown) GI Issues (units (unkn own) date) unknown) (unknown) (no (unknown) (unknown) Hasn't been to doc (units (unknown) date) in a while. 45 unknown) (unknown) (no (unknown) (unknown) He is treating her (units (unknown) date) for depression unknown) anxiety and ADHD. She is on a couple of (unknown) (no (unknown) (unknown) Height 5 ft 9 (units (unknown) date) in unknown) (unknown) (no (unknown) (unknown) Her abdominal pain (units (unknown) date) syndrome sounds unknown) more like pretty classic irritable bowel (unknown) (no (unknown) (unknown) History of back (units (unknown) date) surgery (-2008) unknown) (unknown) (no (unknown) (unknown) I am okay with (units ( unknown) date) prescribing unknown) gabapentin for her I would suggest up to maybe 300 mg (unknown) (no (unknown) (unknown) I would recommend (units (unknown) date) Pap smear she says unknown) she is always had normal Pap smears (unknown) (no (unknown) (unknown) I would recommend (units (unknown) date) some lab work to unknown) check her lipids monitoring that and her (unknown) (no (unknown) (unknown) Intake (units (unkno wn) date) unknown) (unknown) (no (unknown) (unknown) Intake Note: (units (u nknown) date) unknown) (unknown) (no (unknown) (unknown) Intake performed (units (unknown) date) by: Norma Pascal unknown) (unknown) (no (unknown) (unknown) Intake- Clincial (units (unknown) date) Staff unknown) (unknown) (no (unknown) (unknown) Irritable bowel (units (unknown) date) syndrome with unknown) diarrhea (unknown) (no (unknown) (unknown) Is last menstrual (units (unknown) date) period known: Yes unknown) (unknown) (no (unknown) (unknown) Last Menstural (units (unknown) date) Cycle + Details unknown) (unknown) (no (unknown) (unknown) Lipid Panel 1 (units ( unknown) date) Month F32.9 - Major unknown) depressive disorder, single episode, (unknown) (no (unknown) (unknown) Loc: [facility] (units (unkno wn) date) unknown) (unknown) (no (unknown) (unknown) M79.2 - Neuralgia (units (unknown) date) and neuritis, unknown) unspecified, R10.9 - Unspecified abdominal pain, (unknown) (no (unknown) (unknown) MM screening mammo (units (unknown) date) BI 1 Month F32.9 - unknown) Major depressive disorder, single episode, (unknown) (no (unknown) (unknown) Medical History (units (unknown) date) (Updated 11/04/21 @ unknown) 15:06 by Mitch Alejandra MD) (unknown) (no (unknown) (unknown) Medications (units (un known) date) unknown) (unknown) (no (unknown) (unknown) Meet and Greet (units (unknown) date) unknown) (unknown) (no (unknown) (unknown) Mother (units (unknown) date) Myocardial infarct unknown) (unknown) (no (unknown) (unknown) New (units (unkno wn) date) unknown) (unknown) (no (unknown) (unknown) New Patient (units (un known) date) unknown) (unknown) (no (unknown) (unknown) Note (units (unkno wn) date) unknown) (unknown) (no (unknown) (unknown) Note: (units (unkno wn) date) unknown) (unknown) (no (unknown) (unknown) Notes (units (unkno wn) date) unknown) (unknown) (no (unknown) (unknown) Orders (units (unkno wn) date) unknown) (unknown) (no (unknown) (unknown) Oxygen Delivery (units (unknown) date) Method room air unknown) (unknown) (no (unknown) (unknown) PFSH (units (unkno wn) date) unknown) (unknown) (no (unknown) (unknown) PO QPM ##0 (units (unk nown) date) 05/24/16 [History unknown) Confirmed 11/04/21] (unknown) (no (unknown) (unknown) POLLEN Allergy (units (unknown) date) (Unknown, Uncoded unknown) 11/04/21 14:20) (unknown) (no (unknown) (unknown) Patient: (units (unkno wn) date) Kaylah Sampson unknown) MR#: [id number] (unknown) (no (unknown) (unknown) Plan (units (unkno wn) date) unknown) (unknown) (no (unknown) (unknown) Plan to see her (units (unknown) date) back in 6-8 weeks unknown) sooner as needed she will obtain labs between (unknown) (no (unknown) (unknown) Position (units (unkno wn) date) Sitting unknown) (unknown) (no (unknown) (unknown) Potential referral (units (unknown) date) to GI? unknown) (unknown) (no (unknown) (unknown) Previously seen (units (unknown) date) here by Dr. Burrows unknown) Doni probably her last PCP. She started (unknown) (no (unknown) (unknown) Pulse 79 (units (un known) date) unknown) (unknown) (no (unknown) (unknown) Pulse Oximetry (%) (units (unknown) date) 98 unknown) (unknown) (no (unknown) (unknown) Pulse Source (units (u nknown) date) Monitor unknown) (unknown) (no (unknown) (unknown) QPM ##0 05/24/16 (units (unknown) date) [History Confirmed unknown) 11/04/21] (unknown) (no (unknown) (unknown) R53.82 - Chronic (units (unknown) date) fatigue, unknown) unspecified (unknown) (no (unknown) (unknown) R53.82 - Chronic (units (unknown) date) fatigue, unknown) unspecified, Z12.31 - Encounter for screening (unknown) (no (unknown) (unknown) REFILLS. 600 mg (units (unknown) date) (2 x 300 mg) PO TID unknown) 30 caps 0RF (unknown) (no (unknown) (unknown) Reason For Visit (units (unknown) date) unknown) (unknown) (no (unknown) (unknown) Recommend (units (unkno wn) date) mammography she is unknown) never had 1 I recommend doing 1 every 3 years until (unknown) (no (unknown) (unknown) Review/Discuss (units (unknown) date) unknown) (unknown) (no (unknown) (unknown) Review/Discuss. (units (unknown) date) unknown) (unknown) (no (unknown) (unknown) Rosacea (06/09/17) (units (unknown) date) unknown) (unknown) (no (unknown) (unknown) S/P knee surgery (units (unknown) date) (-2006) unknown) (unknown) (no (unknown) (unknown) She also had some (units (unknown) date) persistent GI unknown) symptoms probably her whole life she is begun to (unknown) (no (unknown) (unknown) Signed By: (units (unk nown) date) <Electronically unknown) signed by Mitch Alejandra MD> (unknown) (no (unknown) (unknown) Smoking Status: (units (unknown) date) Former smoker unknown) (unknown) (no (unknown) (unknown) States her (units (unk nown) date) psychiatrist use to unknown) fill her meds. (unknown) (no (unknown) (unknown) States may need a (units (unknown) date) lot of things done. unknown) (unknown) (no (unknown) (unknown) States psych doc (units (unknown) date) would like PCP to unknown) manage. (unknown) (no (unknown) (unknown) Surgical History (units (unknown) date) (Reviewed 11/04/21 unknown) @ 15:04 by Mitch Alejandra MD) (unknown) (no (unknown) (unknown) TSH w/ Reflex to (units (unknown) date) FT4 1 Month F32.9 - unknown) Major depressive disorder, single episode, (unknown) (no (unknown) (unknown) This note may have (units (unknown) date) been all or unknown) partially generated using voice recognition (unknown) (no (unknown) (unknown) Tissue (units (unkno wn) date) Transglutaminase unknown) IgA 1 Month R10.9 - Unspecified abdominal pain (unknown) (no (unknown) (unknown) Tissue (units (unkno wn) date) Transglutaminase unknown) IgG 1 Month R10.9 - Unspecified abdominal pain (unknown) (no (unknown) (unknown) To gabapentin (units ( unknown) date) (Neurontin) 300 mg unknown) PO DAILY (unknown) (no (unknown) (unknown) Tobacco + (units (unkn own) date) Substance Use unknown) (unknown) (no (unknown) (unknown) Tobacco Status (units (unknown) date) unknown) (unknown) (no (unknown) (unknown) Uncomplicated (units ( unknown) date) opioid dependence unknown) (05/24/16) (unknown) (no (unknown) (unknown) Unspecified (units (un known) date) abdominal pain, unknown) R53.82 - Chronic fatigue, unspecified (unknown) (no (unknown) (unknown) 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 unknown) (unknown) (no (unknown) (unknown) Weight 79.832 (units (unknown) date) kg unknown) (unknown) (no (unknown) (unknown) [History Confirmed (units (unknown) date) 11/04/21] unknown) (unknown) (no (unknown) (unknown) a day and that is (units (unknown) date) helpful she thinks unknown) a little more might be little more helpful (unknown) (no (unknown) (unknown) abdominal pain (units (unknown) date) with some severe unknown) diarrhea that passes generally over the course (unknown) (no (unknown) (unknown) blood pressure and (units (unknown) date) not smoking or unknown) probably the best way to keep her from (unknown) (no (unknown) (unknown) bupropion HCl 150 (units (unknown) date) mg 24 hr tablet, unknown) extended release 450 mg PO DAILY 11/04/21 (unknown) (no (unknown) (unknown) but does not want (units (unknown) date) to go back to those unknown) much higher doses there is lots of side (unknown) (no (unknown) (unknown) cholecalciferol (units (unknown) date) (vitamin D3) 50 mcg unknown) (2,000 unit) tablet (Vitamin D3) 4,000 unit (unknown) (no (unknown) (unknown) clonidine HCl 0.2 (units (unknown) date) mg tablet 0.2 mg PO unknown) BEDTIME 09/17/18 [History Confirmed (unknown) (no (unknown) (unknown) developing any (units (unknown) date) vascular disease. unknown) We had some discussion about that (unknown) (no (unknown) (unknown) dextroamphetamine- (units (unknown) date) amphetamine 15 mg unknown) tablet 15 mg PO QPM 11/04/21 [History (unknown) (no (unknown) (unknown) dextroamphetamine- (units (unknown) date) amphetamine ER 30 unknown) mg 24hr capsule,extend release 30 mg PO QAM (unknown) (no (unknown) (unknown) different (units (unkn own) date) antidepressants as unknown) well as couple doses of Adderall. She is been (unknown) (no (unknown) (unknown) done. Does have a (units (unknown) date) family history of unknown) heart disease with her mother dying of a (unknown) (no (unknown) (unknown) effects (units (unkno wn) date) unknown) (unknown) (no (unknown) (unknown) episode, (units (unkno wn) date) unspecified, F90.9 unknown) - Attention-deficit hyperactivity disorder, (unknown) (no (unknown) (unknown) establish with a (units (unknown) date) PCP to continue unknown) getting that. He did prescribe her 300 mg once (unknown) (no (unknown) (unknown) followed him to (units (unknown) date) [facility] when he unknown) moved to [facility] probably nearly 10 years ago (unknown) (no (unknown) (unknown) gabapentin 300 mg (units (unknown) date) PO BID 60 caps 5RF unknown) (unknown) (no (unknown) (unknown) gabapentin 300 mg (units (unknown) date) capsule (Neurontin) unknown) 300 mg PO DAILY 11/04/21 [History (unknown) (no (unknown) (unknown) gabapentin 300 mg (units (unknown) date) capsule 300 mg PO unknown) BID #60 caps 11/04/21 [Rx Confirmed (unknown) (no (unknown) (unknown) gabapentin. She (units (unknown) date) was taking 600 mg 3 unknown) times a day which is kind of making her (unknown) (no (unknown) (unknown) have occurred. If (units (unknown) date) there are any unknown) questions, please contact the Medical Records (unknown) (no (unknown) (unknown) like there was too (units (unknown) date) many side effects unknown) for that. (unknown) (no (unknown) (unknown) mammogram for (units ( unknown) date) malignant neoplasm unknown) of breast (unknown) (no (unknown) (unknown) may occur. (units (unk nown) date) Occasional unknown) wrong-word or 'sound-alike' substitutions may have (unknown) (no (unknown) (unknown) menstrual cycle (units (unknown) date) time of the year unknown) time of day other activities etcetera (unknown) (no (unknown) (unknown) minimizing affects (units (unknown) date) of either those unknown) disease processes (unknown) (no (unknown) (unknown) mold [MOLD] (units (un known) date) Allergy (Unknown, unknown) Verified 11/04/21 14:20) (unknown) (no (unknown) (unknown) now (units (unkno wn) date) unknown) (unknown) (no (unknown) (unknown) now and then (units (u nknown) date) unknown) (unknown) (no (unknown) (unknown) occurred due to (units (unknown) date) the inherent unknown) limitations of voice recognition software. Please (unknown) (no (unknown) (unknown) of her menstrual (units (unknown) date) cycle. She calls unknown) it a nerve pain is much improved with the (unknown) (no (unknown) (unknown) of several hours. (units (unknown) date) No real pattern to unknown) it that she is ever been able to identify. (unknown) (no (unknown) (unknown) omega (units (unkno wn) date) [id number]-fish oil unknown) 1,000 mg (120 mg-180 mg) capsule (Fish Oil) 1,000 mg PO (unknown) (no (unknown) (unknown) point. (units (unkno wn) date) unknown) (unknown) (no (unknown) (unknown) practitioners for (units (unknown) date) that unknown) (unknown) (no (unknown) (unknown) probable heart (units ( unknown) date) attack father with unknown) Parkinson's disease wonders about screening or (unknown) (no (unknown) (unknown) probably been 4+ (units (unknown) date) year since she had unknown) a Pap smear. 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 Mohr unknown) when he was still with [facility] she (unknown) (no (unknown) (unknown) sertraline 100 mg (units (unknown) date) tablet 150 mg PO unknown) DAILY 11/04/21 [History Confirmed 11/04/21] (unknown) (no (unknown) (unknown) she is about 52 (units (unknown) date) and then every unknown) other year (unknown) (no (unknown) (unknown) sleepy groggy (units ( unknown) date) dopey than she ran unknown) out of [facility] and Dr. Mohr wanted her to (unknown) (no (unknown) (unknown) software. 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 unknown) However I would certainly do some lab work (unknown) (no (unknown) (unknown) think there normal (units (unknown) date) episodic we should unknown) get what she calls attacks which she gets (unknown) (no (unknown) (unknown) to look for other (units (unknown) date) potential unknown) etiologies as well as consider colonoscopy at some (unknown) (no (unknown) (unknown) twice a day I (units ( unknown) date) would frankly be unknown) okay with her going to 3 times a day but seems (unknown) (no (unknown) (unknown) unspecified type, (units (unknown) date) M79.2 - Neuralgia unknown) and neuritis, unspecified, R10.9 - (unknown) (no (unknown) (unknown) unspecified, F90.9 (units (unknown) date) - Attention-deficit unknown) hyperactivity disorder, unspecified type, (unknown) (no (unknown) (unknown) using gabapentin (units (unknown) date) for some unknown) right-sided leg pain that seems to coincide with part Result panel 6 (unknown) (no date) (unknown) (unknown) <2 u/ml 12476 -7 (unknown) (no date) (unknown) (unknown) <2 u/ml (unkn own) (unknown) (no date) (unknown) (unknown) 3 u/ml 64605 -7 (unknown) (no date) (unknown) (unknown) 3 u/ml (unkn own) Result panel 7 (unknown) (no date) (unknown) (unknown) 0 /ul (unkn own) (unknown) (no date) (unknown) (unknown) 0.5 % (unkn own) (unknown) (no date) (unknown) (unknown) 100 /ul (unkn own) (unknown) (no date) (unknown) (unknown) 13.2 % (unkn own) (unknown) (no date) (unknown) (unknown) 14.3 g/dl (unkn own) (unknown) (no date) (unknown) (unknown) 1800 /ul (unkn own) (unknown) (no date) (unknown) (unknown) 2.2 % (unkn own) (unknown) (no date) (unknown) (unknown) 236 x10 3/ul (unkn own) (unknown) (no date) (unknown) (unknown) 30.5 pg (unkn own) (unknown) (no date) (unknown) (unknown) 3100 /ul (unkn own) (unknown) (no date) (unknown) (unknown) 33.1 % (unkn own) (unknown) (no date) (unknown) (unknown) 34.6 % (unkn own) (unknown) (no date) (unknown) (unknown) 4.70 x10 6/ul (unkn own) (unknown) (no date) (unknown) (unknown) 400 /ul (unkn own) (unknown) (no date) (unknown) (unknown) 41.5 % (unkn own) (unknown) (no date) (unknown) (unknown) 5.5 x10 3/ul (unkn own) (unknown) (no date) (unknown) (unknown) 56.9 % (unkn own) (unknown) (no date) (unknown) (unknown) 7.3 % (unkn own) (unknown) (no date) (unknown) (unknown) 88.3 fl (unkn own) Result panel 8 (unknown) (no date) (unknown) (unknown) > 60 ml/min (unkn own) (unknown) (no date) (unknown) (unknown) > 60 ml/min (unkn own) (unknown) (no date) (unknown) (unknown) < 0.5 mg/dl (unkn own) (unknown) (no date) (unknown) (unknown) 0.4 mg/dl (unkn own) (unknown) (no date) (unknown) (unknown) 0.65 mg/dl (unkn own) (unknown) (no date) (unknown) (unknown) 1.5 (units unknown) (unknown) (unknown) (no date) (unknown) (unknown) 110 mmol/l (unkn own) (unknown) (no date) (unknown) (unknown) 118 mg/dl (unkn own) (unknown) (no date) (unknown) (unknown) 118 mg/dl (unkn own) (unknown) (no date) (unknown) (unknown) 13.8 (units unknown) (unknown) (unknown) (no date) (unknown) (unknown) 137 mmol/l (unkn own) (unknown) (no date) (unknown) (unknown) 14 iu/l (unkn own) (unknown) (no date) (unknown) (unknown) 179 mg/dl (unkn own) (unknown) (no date) (unknown) (unknown) 179 mg/dl (unkn own) (unknown) (no date) (unknown) (unknown) 19 mmol/l (unkn own) (unknown) (no date) (unknown) (unknown) 2.7 g/dl (unkn own) (unknown) (no date) (unknown) (unknown) 21 iu/l (unkn own) (unknown) (no date) (unknown) (unknown) 4.1 g/dl (unkn own) (unknown) (no date) (unknown) (unknown) 4.4 mmol/l (unkn own) (unknown) (no date) (unknown) (unknown) 42 mg/dl (unkn own) (unknown) (no date) (unknown) (unknown) 42 mg/dl (unkn own) (unknown) (no date) (unknown) (unknown) 6.8 g/dl (unkn own) (unknown) (no date) (unknown) (unknown) 74 u/l (unkn own) (unknown) (no date) (unknown) (unknown) 8.7 mg/dl (unkn own) (unknown) (no date) (unknown) (unknown) 9 mg/dl (unkn own) (unknown) (no date) (unknown) (unknown) 91 mg/dl (unkn own) (unknown) (no date) (unknown) (unknown) 91 mg/dl (unkn own) (unknown) (no date) (unknown) (unknown) 97 mg/dl (unkn own) (unknown) (no date) (unknown) (unknown) 97 mg/dl (unkn own) Result panel 9 (unknown) (no date) (unknown) (unknown) 0.80 uiu/ml (unkn own) Result panel 10 (unknown) (no date) (unknown) (unknown) <2 u/ml (unkn own) (unknown) (no date) (unknown) (unknown) <2 u/ml (unkn own) (unknown) (no date) (unknown) (unknown) 3 u/ml (unkn own) (unknown) (no date) (unknown) (unknown) 3 u/ml (unkn own) Result panel 11 (unknown) (no (unknown) (unknown) (no value) (units (unk nown) date) unknown) (unknown) (no (unknown) (unknown) [id number] (units (unkno wn) date) unknown) (unknown) (no (unknown) (unknown) 11/04/21 [History (units (unknown) date) Confirmed unknown) 12/16/21] (unknown) (no (unknown) (unknown) 12/16/21 (units (unkno wn) date) unknown) (unknown) (no (unknown) (unknown) 12/16/21] (units (unkn own) date) unknown) (unknown) (no (unknown) (unknown) Age/Sex: 46 / F (units (unknown) date) Date of Service: unknown) (unknown) (no (unknown) (unknown) Allergies (units (unkn own) date) unknown) (unknown) (no (unknown) (unknown) [place], [place] (units ( unknown) date) [address] unknown) (unknown) (no (unknown) (unknown) Anxiety (units (unkno wn) date) (10/19/15) unknown) (unknown) (no (unknown) (unknown) Attending Dr: (units ( unknown) date) Mitch Alejandra MD unknown) (unknown) (no (unknown) (unknown) Attention deficit (units (unknown) date) hyperactivity unknown) disorder (ADHD) (10/19/15) (unknown) (no (unknown) (unknown) Brother (units (unknown) date) Suicide unknown) (unknown) (no (unknown) (unknown) Chronic fatigue (units (unknown) date) (10/19/15) unknown) (unknown) (no (unknown) (unknown) Chronic pain (units (u nknown) date) syndrome unknown) (05/24/16) (unknown) (no (unknown) (unknown) Chronic (units (unkno wn) date) right-sided low unknown) back pain (05/24/16) (unknown) (no (unknown) (unknown) Confirmed (units (unkn own) date) 12/16/21] unknown) (unknown) (no (unknown) (unknown) : 1975 (units (unknown) date) Acct:[id number] unknown) (unknown) (no (unknown) (unknown) DUST [facility]ES (units (unk nown) date) Allergy (Unknown, unknown) Uncoded 12/16/21 13:35) (unknown) (no (unknown) (unknown) Depression (units (unk nown) date) (10/19/15) unknown) (unknown) (no (unknown) (unknown) Dept at (units (unkno wn) date) . unknown) (unknown) (no (unknown) (unknown) Documented By: (units (unknown) date) Mitch Alejandra MD unknown) 12/16/21 8015 (unknown) (no (unknown) (unknown) Draft (units (unkno wn) date) unknown) (unknown) (no (unknown) (unknown) Episodic (units (unkno wn) date) tension-type unknown) headache, not intractable (10/19/15) (unknown) (no (unknown) (unknown) Family History (units (unknown) date) (Reviewed 11/04/21 unknown) @ 15:04 by Mitch Alejandra MD) (unknown) (no (unknown) (unknown) Father (units (unknown) date) Parkinsonism unknown) (unknown) (no (unknown) (unknown) [facility]) (unknown) (no (unknown) (unknown) Follow Up Labs - (units (unknown) date) done on 12/10/21. unknown) (unknown) (no (unknown) (unknown) History of back (units (unknown) date) surgery (-2008) unknown) (unknown) (no (unknown) (unknown) Hyperlipidemia (units (unknown) date) unknown) (unknown) (no (unknown) (unknown) Hypertension (units (u nknown) date) unknown) (unknown) (no (unknown) (unknown) Intake Note: (units (u nknown) date) unknown) (unknown) (no (unknown) (unknown) Intake performed (units (unknown) date) by: Norma Pascal unknown) (unknown) (no (unknown) (unknown) Intake (units (unkno wn) date) unknown) (unknown) (no (unknown) (unknown) Intake- Clincial (units (unknown) date) Staff unknown) (unknown) (no (unknown) (unknown) Internal Medicine (units (unknown) date) Office Visit unknown) (unknown) (no (unknown) (unknown) Irritable bowel (units (unknown) date) syndrome with unknown) diarrhea (unknown) (no (unknown) (unknown) Loc: [facility] (units (unkno wn) date) unknown) (unknown) (no (unknown) (unknown) Medical History (units (unknown) date) (Updated 11/04/21 unknown) @ 15:06 by Mitch Alejandra MD) (unknown) (no (unknown) (unknown) Medications (units (un known) date) unknown) (unknown) (no (unknown) (unknown) Mental and (units (unk nown) date) behavioral problem unknown) (unknown) (no (unknown) (unknown) Mother (units (unknown) date) Myocardial infarct unknown) (unknown) (no (unknown) (unknown) PFSH (units (unkno wn) date) unknown) (unknown) (no (unknown) (unknown) PO QPM ##0 (units (unk nown) date) 05/24/16 [History unknown) Confirmed 12/16/21] (unknown) (no (unknown) (unknown) POLLEN Allergy (units (unknown) date) (Unknown, Uncoded unknown) 12/16/21 13:35) (unknown) (no (unknown) (unknown) Patient: (units (unkno wn) date) Kaylah Sampson E unknown) MR#: [id number] (unknown) (no (unknown) (unknown) QPM ##0 05/24/16 (units (unknown) date) [History Confirmed unknown) 12/16/21] (unknown) (no (unknown) (unknown) Reason For Visit (units (unknown) date) unknown) (unknown) (no (unknown) (unknown) Review/Discuss. (units (unknown) date) unknown) (unknown) (no (unknown) (unknown) Rosacea (units (unkno wn) date) (06/09/17) unknown) (unknown) (no (unknown) (unknown) S/P knee surgery (units (unknown) date) (-2006) unknown) (unknown) (no (unknown) (unknown) Signed By: (units (unk nown) date) unknown) (unknown) (no (unknown) (unknown) Smoking Status: (units (unknown) date) Former smoker unknown) (unknown) (no (unknown) (unknown) Surgical History (units (unknown) date) (Reviewed 11/04/21 unknown) @ 15:04 by Mitch Alejandra MD) (unknown) (no (unknown) (unknown) This note may (units ( unknown) date) have been all or unknown) partially generated using voice recognition (unknown) (no (unknown) (unknown) Tobacco + (units (unkn own) date) Substance Use unknown) (unknown) (no (unknown) (unknown) Tobacco Status (units (unknown) date) unknown) (unknown) (no (unknown) (unknown) Uncomplicated (units ( unknown) date) opioid dependence unknown) (05/24/16) (unknown) (no (unknown) (unknown) Visit Reasons: (units (unknown) date) Follow Up Labs 09 unknown) (unknown) (no (unknown) (unknown) Vitamin D (units (unkn own) date) deficiency unknown) (10/19/15) (unknown) (no (unknown) (unknown) [History (units (unkno wn) date) Confirmed unknown) 12/16/21] (unknown) (no (unknown) (unknown) bupropion HCl 150 (units (unknown) date) mg 24 hr tablet, unknown) extended release 450 mg PO DAILY 11/04/21 (unknown) (no (unknown) (unknown) cholecalciferol (units (unknown) date) (vitamin D3) 50 unknown) mcg (2,000 unit) tablet (Vitamin D3) 4,000 unit (unknown) (no (unknown) (unknown) clonidine HCl 0.2 (units (unknown) date) mg tablet 0.2 mg unknown) PO BEDTIME 09/17/18 [History Confirmed (unknown) (no (unknown) (unknown) dextroamphetamine (units (unknown) date) -amphetamine 15 mg unknown) tablet 15 mg PO QPM 11/04/21 [History (unknown) (no (unknown) (unknown) dextroamphetamine (units (unknown) date) -amphetamine ER 30 unknown) mg 24hr capsule,extend release 30 mg PO QAM (unknown) (no (unknown) (unknown) gabapentin 300 mg (units (unknown) date) capsule unknown) (Neurontin) 300 mg PO DAILY 11/04/21 [History (unknown) (no (unknown) (unknown) gabapentin 300 mg (units (unknown) date) capsule 300 mg PO unknown) BID #60 caps 11/04/21 [Rx Confirmed (unknown) (no (unknown) (unknown) have occurred. If (units (unknown) date) there are any unknown) questions, please contact the Medical Records (unknown) (no (unknown) (unknown) may occur. (units (unk nown) date) Occasional unknown) wrong-word or 'sound-alike' substitutions may have (unknown) (no (unknown) (unknown) mold [MOLD] (units (un known) date) Allergy (Unknown, unknown) Verified 12/16/21 13:35) (unknown) (no (unknown) (unknown) occurred due to (units (unknown) date) the inherent unknown) limitations of voice recognition software. Please (unknown) (no (unknown) (unknown) omega (units (unkno wn) date) [id number]-fish oil unknown) 1,000 mg (120 mg-180 mg) capsule (Fish Oil) 1,000 mg PO (unknown) (no (unknown) (unknown) propranolol 20 mg (units (unknown) date) tablet 20 mg PO unknown) BID PRN anxiety/panic 05/12/19 [History (unknown) (no (unknown) (unknown) read the note (units ( unknown) date) carefully and unknown) recognize, using context, where these substitutions (unknown) (no (unknown) (unknown) sertraline 100 mg (units (unknown) date) tablet 150 mg PO unknown) DAILY 11/04/21 [History Confirmed 12/16/21] (unknown) (no (unknown) (unknown) software. 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 errors Result panel 12 (unknown) (no (unknown) (unknown) (no value) (units (unk nown) date) unknown) (unknown) (no (unknown) (unknown) (1) Irritable (units ( unknown) date) bowel syndrome unknown) with diarrhea: (unknown) (no (unknown) (unknown) (2) Chronic (units (un known) date) fatigue: unknown) (unknown) (no (unknown) (unknown) [id number] (units (unkno wn) date) unknown) (unknown) (no (unknown) (unknown) 11/04/21 [History (units (unknown) date) Confirmed unknown) 12/16/21] (unknown) (no (unknown) (unknown) 12/16/21 1420 (units ( unknown) date) unknown) (unknown) (no (unknown) (unknown) 12/16/21 (units (unkno wn) date) unknown) (unknown) (no (unknown) (unknown) 12/16/21] (units (unkn own) date) unknown) (unknown) (no (unknown) (unknown) 13:42 (units (unkno wn) date) unknown) (unknown) (no (unknown) (unknown) 47 which is (units (un known) date) almost a year away unknown) (unknown) (no (unknown) (unknown) Age/Sex: 46 / F (units (unknown) date) Date of Service: unknown) (unknown) (no (unknown) (unknown) Allergies (units (unkn own) date) unknown) (unknown) (no (unknown) (unknown) [place], [place] (units ( unknown) date) [address] unknown) (unknown) (no (unknown) (unknown) Anxiety (units (unkno wn) date) (10/19/15) unknown) (unknown) (no (unknown) (unknown) Assessment + Plan (units (unknown) date) unknown) (unknown) (no (unknown) (unknown) Attending Dr: (units ( unknown) date) Mitch Alejandra MD unknown) (unknown) (no (unknown) (unknown) Attention deficit (units (unknown) date) hyperactivity unknown) disorder (ADHD) (10/19/15) (unknown) (no (unknown) (unknown) BMI 25.2 (units (unkno wn) date) unknown) (unknown) (no (unknown) (unknown) BP 114/86 (units (unkn own) date) unknown) (unknown) (no (unknown) (unknown) Basically feeling (units (unknown) date) fine doing fine no unknown) active issues or problems. Continues on (unknown) (no (unknown) (unknown) Blood Pressure (units (unknown) date) Location Lt unknown) brachial (unknown) (no (unknown) (unknown) Blood pressure (units (unknown) date) excellent here unknown) today (unknown) (no (unknown) (unknown) Brother (units (unknown) date) Suicide unknown) (unknown) (no (unknown) (unknown) Came in for lab (units (unknown) date) work unknown) (unknown) (no (unknown) (unknown) Chief Complaint: (units (unknown) date) Follow-up unknown) (unknown) (no (unknown) (unknown) Chronic fatigue (units (unknown) date) (10/19/15) unknown) (unknown) (no (unknown) (unknown) Chronic pain (units (u nknown) date) syndrome unknown) (05/24/16) (unknown) (no (unknown) (unknown) Chronic (units (unkno wn) date) right-sided low unknown) back pain (05/24/16) (unknown) (no (unknown) (unknown) Confirmed (units (unkn own) date) 12/16/21] unknown) (unknown) (no (unknown) (unknown) : 1975 (units (unknown) date) Acct:[id number] unknown) (unknown) (no (unknown) (unknown) [facility] (units (unk nown) date) Allergy (Unknown, unknown) Uncoded 12/16/21 13:35) (unknown) (no (unknown) (unknown) Depression (units (unk nown) date) (10/19/15) unknown) (unknown) (no (unknown) (unknown) Dept at (units (unkno wn) date) . unknown) (unknown) (no (unknown) (unknown) Documented By: (units (unknown) date) Mitch Alejandra MD unknown) 12/16/21 1335 (unknown) (no (unknown) (unknown) Episodic (units (unkno wn) date) tension-type unknown) headache, not intractable (10/19/15) (unknown) (no (unknown) (unknown) Family History (units (unknown) date) (Reviewed 11/04/21 unknown) @ 15:04 by Mitch lAejandra MD) (unknown) (no (unknown) (unknown) Father (units (unknown) date) Parkinsonism unknown) (unknown) (no (unknown) (unknown) [facility]) (unknown) (no (unknown) (unknown) Follow Up Labs - (units (unknown) date) done on 12/10/21. unknown) (unknown) (no (unknown) (unknown) Height 5 ft 9 in (units (unknown) date) unknown) (unknown) (no (unknown) (unknown) History of back (units (unknown) date) surgery (-2008) unknown) (unknown) (no (unknown) (unknown) Hyperlipidemia (units (unknown) date) unknown) (unknown) (no (unknown) (unknown) Hypertension (units (u nknown) date) unknown) (unknown) (no (unknown) (unknown) I also (units (unkno wn) date) recommended unknown) mammogram (unknown) (no (unknown) (unknown) Intake Note: (units (u nknown) date) unknown) (unknown) (no (unknown) (unknown) Intake performed (units (unknown) date) by: Norma Pascal unknown) (unknown) (no (unknown) (unknown) Intake (units (unkno wn) date) unknown) (unknown) (no (unknown) (unknown) Intake- Clincial (units (unknown) date) Staff unknown) (unknown) (no (unknown) (unknown) Internal Medicine (units (unknown) date) Office Visit unknown) (unknown) (no (unknown) (unknown) Irritable bowel (units (unknown) date) syndrome with unknown) diarrhea (unknown) (no (unknown) (unknown) Lab work was (units (u nknown) date) completely unknown) unremarkable. Lipids outstanding with a low HDL (unknown) (no (unknown) (unknown) Loc: [facility] (units (unkno wn) date) unknown) (unknown) (no (unknown) (unknown) Medical History (units (unknown) date) (Updated 11/04/21 unknown) @ 15:06 by Mitch Alejandra MD) (unknown) (no (unknown) (unknown) Medications (units (un known) date) unknown) (unknown) (no (unknown) (unknown) Mental and (units (unk nown) date) behavioral problem unknown) (unknown) (no (unknown) (unknown) Mother (units (unknown) date) Myocardial infarct unknown) (unknown) (no (unknown) (unknown) Note (units (unkno wn) date) unknown) (unknown) (no (unknown) (unknown) Note: (units (unkno wn) date) unknown) (unknown) (no (unknown) (unknown) Notes (units (unkno wn) date) unknown) (unknown) (no (unknown) (unknown) Oxygen Delivery (units (unknown) date) Method room air unknown) (unknown) (no (unknown) (unknown) PFSH (units (unkno wn) date) unknown) (unknown) (no (unknown) (unknown) PO QPM ##0 (units (unk nown) date) 05/24/16 [History unknown) Confirmed 12/16/21] (unknown) (no (unknown) (unknown) POLLEN Allergy (units (unknown) date) (Unknown, Uncoded unknown) 12/16/21 13:35) (unknown) (no (unknown) (unknown) Patient seen in (units (unknown) date) follow-up unknown) (unknown) (no (unknown) (unknown) Patient: (units (unkno wn) date) Kaylah Sampson unknown) MR#: [id number] (unknown) (no (unknown) (unknown) Plan (units (unkno wn) date) unknown) (unknown) (no (unknown) (unknown) Position Sitting (units (unknown) date) unknown) (unknown) (no (unknown) (unknown) Pulse 67 (units (unkno wn) date) unknown) (unknown) (no (unknown) (unknown) Pulse Oximetry (units (unknown) date) (%) 100 unknown) (unknown) (no (unknown) (unknown) Pulse Source (units (u nknown) date) Monitor unknown) (unknown) (no (unknown) (unknown) QPM ##0 05/24/16 (units (unknown) date) [History Confirmed unknown) 12/16/21] (unknown) (no (unknown) (unknown) Reason For Visit (units (unknown) date) unknown) (unknown) (no (unknown) (unknown) Review/Discuss. 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 so will get (unknown) (no (unknown) (unknown) Signed By: (units (unk nown) date) <Electronically unknown) signed by Mitch Alejandra MD> (unknown) (no (unknown) (unknown) Signed (units (unkno wn) date) unknown) (unknown) (no (unknown) (unknown) Smoking Status: (units (unknown) date) Former smoker unknown) (unknown) (no (unknown) (unknown) Soon she will be (units (unknown) date) due for colon unknown) cancer screening but not technically until she is (unknown) (no (unknown) (unknown) Status: Chronic (units (unknown) date) unknown) (unknown) (no (unknown) (unknown) Surgical History (units (unknown) date) (Reviewed 11/04/21 unknown) @ 15:04 by Mitch Alejandra MD) (unknown) (no (unknown) (unknown) This note may (units ( unknown) date) have been all or unknown) partially generated using voice recognition (unknown) (no (unknown) (unknown) Tobacco + (units (unkn own) date) Substance Use unknown) (unknown) (no (unknown) (unknown) Tobacco Status (units (unknown) date) unknown) (unknown) (no (unknown) (unknown) Uncomplicated (units ( unknown) date) opioid dependence unknown) (05/24/16) (unknown) (no (unknown) (unknown) Visit Reasons: (units (unknown) date) Follow Up Labs 09 unknown) (unknown) (no (unknown) (unknown) Vital signs look (units (unknown) date) good here today unknown) (unknown) (no (unknown) (unknown) Vitals (units (unkno wn) date) unknown) (unknown) (no (unknown) (unknown) Vitamin D (units (unkn own) date) deficiency unknown) (10/19/15) (unknown) (no (unknown) (unknown) Weight 77.337 kg (units (unknown) date) unknown) (unknown) (no (unknown) (unknown) [History (units (unkno wn) date) Confirmed unknown) 12/16/21] (unknown) (no (unknown) (unknown) bupropion HCl 150 (units (unknown) date) mg 24 hr tablet, unknown) extended release 450 mg PO DAILY 11/04/21 (unknown) (no (unknown) (unknown) cholecalciferol (units (unknown) date) (vitamin D3) 50 unknown) mcg (2,000 unit) tablet (Vitamin D3) 4,000 unit (unknown) (no (unknown) (unknown) clonidine HCl 0.2 (units (unknown) date) mg tablet 0.2 mg unknown) PO BEDTIME 09/17/18 [History Confirmed (unknown) (no (unknown) (unknown) dextroamphetamine (units (unknown) date) -amphetamine 15 mg unknown) tablet 15 mg PO QPM 11/04/21 [History (unknown) (no (unknown) (unknown) dextroamphetamine (units (unknown) date) -amphetamine ER 30 unknown) mg 24hr capsule,extend release 30 mg PO QAM (unknown) (no (unknown) (unknown) gabapentin 300 mg (units (unknown) date) capsule unknown) (Neurontin) 300 mg PO DAILY 11/04/21 [History (unknown) (no (unknown) (unknown) gabapentin 300 mg (units (unknown) date) capsule 300 mg PO unknown) BID #60 caps 11/04/21 [Rx Confirmed (unknown) (no (unknown) (unknown) have occurred. If (units (unknown) date) there are any unknown) questions, please contact the Medical Records (unknown) (no (unknown) (unknown) may occur. (units (unk nown) date) Occasional unknown) wrong-word or 'sound-alike' substitutions may have (unknown) (no (unknown) (unknown) mold [MOLD] (units (un known) date) Allergy (Unknown, unknown) Verified 12/16/21 13:35) (unknown) (no (unknown) (unknown) occurred due to (units (unknown) date) the inherent unknown) limitations of voice recognition software. Please (unknown) (no (unknown) (unknown) omega (units (unkno wn) date) 6-yom-hnh-fish oil unknown) 1,000 mg (120 mg-180 mg) capsule (Fish Oil) 1,000 mg PO (unknown) (no (unknown) (unknown) propranolol 20 mg (units (unknown) date) tablet 20 mg PO unknown) BID PRN anxiety/panic 05/12/19 [History (unknown) (no (unknown) (unknown) psychiatrist (units (u nknown) date) unknown) (unknown) (no (unknown) (unknown) read the note (units ( unknown) date) carefully and unknown) recognize, using context, where these substitutions (unknown) (no (unknown) (unknown) same medication. (units (unknown) date) Continues to get unknown) her mental health medications through her (unknown) (no (unknown) (unknown) sertraline 100 mg (units (unknown) date) tablet 150 mg PO unknown) DAILY 11/04/21 [History Confirmed 12/16/21] (unknown) (no (unknown) (unknown) software. 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 errors (unknown) (no (unknown) (unknown) that process (units (u nknown) date) started unknown) Social History No information. Vital Signs No information.
[2021-12-17] MEDS ORDERED: diphenhydrAMINE INJ 50 MG/ML VIAL IVP STA (17:12)
[2021-12-17] MEDS ORDERED: METOCLOPRAMIDE 10 MG/2 ML VIAL IVP STA (17:12)
[2021-12-17] MEDS ORDERED: SODIUM CHLORIDE 0.9% 1,000 ML IV STA (17:12)
[2021-12-17] MEDS ORDERED: KETOROLAC 15 MG/ML VIAL IVP STA (17:12)
--- NOTE | 2021-12-17 17:14 | ED Physician Documentation ---
PD HPI ABD PAIN - Stated complaint Stated Complaint: ABDOMINAL PAIN - Chief complaint Chief Complaint: Abd Pain - History obtained from History obtained from: Patient - Additional information Additional information: 46-year-old woman presents by ambulance for the evaluation of upper abdominal pain radiating to the chest and back starting few hours ago. She feels like she has food poisoning. She is vomited about 4 times and has had innumerable bouts of diarrhea with this. No sick contacts. No associated fevers. She did receive some Zofran on route which she felt was helpful but now she feels like she is getting her typical migraine aura. 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 : None HEENT: None Psych: Depression, Anxiety Musculoskeletal: None Derm: None - Past Surgical History Past Surgical History: Yes General: Appendectomy - Present Medications Home Medications: Ambulatory Orders Medication Instructions Recorded Confirmed Dextroamphetamine/Amphetamine 2 tab PO DAILY 11/25/16 02/13/19 [Adderall Xr 30 mg Capsule] Propranolol HCl 20 mg PO DAILY 11/25/16 02/13/19 Sertraline HCl [Zoloft] 100 mg PO DAILY 11/25/16 02/13/19 buPROPion [Wellbutrin Sr] 150 mg PO BID 11/25/16 02/13/19 cloNIDine 0.2 MG PATCH 1 tab PO DAILY 11/25/16 02/13/19 [[id number]] Gabapentin 600 mg PO TID 02/13/19 02/13/19 Propranolol HCl 20 mg PO DAILY 02/13/19 02/13/19 diazePAM [Valium] 5 - 10 mg PO TID PRN #7 tablet 02/13/19 Oxycodone HCl/Acetaminophen 1 - 2 each PO Q6H PRN #10 tablet 08/16/21 [Percocet 5-325 mg Tablet] - Allergies Allergies/Adverse Reactions: Allergies Allergy/AdvReac Type Severity Reaction Status Date / Time No Known Drug Allergies Allergy Verified 12/17/21 17:04 - Social History Does the pt smoke?: No Smoking Status: Never smoker Does the pt drink ETOH?: Yes Does the pt have substance abuse?: No - Immunizations Immunizations are current?: No - POLST Patient has POLST: No PD ED PE NORMAL - Vitals Vital signs reviewed: Yes - General General: Alert and oriented X 3, No acute distress - HEENT HEENT: PERRL, EOMI - Neck Neck: Supple, no meningeal sign, No bony TTP - Cardiac Cardiac: RRR, No murmur - Respiratory Respiratory: No respiratory distress, Clear bilaterally - Abdomen Abdomen: Normal bowel sounds, Soft, Non tender - Back Back: No CVA TTP, No spinal TTP - Derm Derm: Normal color, Warm and dry - Extremities Extremities: No edema, No calf tenderness / cord - Neuro Neuro: Alert and oriented X 3, Normal speech - Psych Psych: Normal mood, Normal affect Results - Vitals Vitals: Vital Signs - 24 hr 12/17/21 12/17/21 12/17/21 16:56 17:53 19:21 Temperature 37.1 C Heart Rate 67 68 80 Respiratory 18 14 20 Rate Blood Pressure 109/74 114/77 115/71 O2 Saturation 99 99 100 Oxygen O2 Source Room air - EKG (time done) 1655 Rate: Rate (enter#) (66) Rhythm: NSR [place]: Normal Intervals: Normal RI QRS: Normal Ischemia: Normal ST segments - Labs Labs: Laboratory Tests 12/17/21 12/17/21 12/17/21 17:24 18:20 18:20 WBC 11.2 H RBC 4.54 Hgb 14.0 Hct 40.2 MCV 88.5 MCH 30.8 MCHC 34.8 RDW 12.7 Plt Count 216 MPV 8.9 Neut # (Auto) 9.5 H Lymph # (Auto) 1.0 L [place] # (Auto) 0.6 Eos # (Auto) 0.1 Baso # (Auto) 0.0 Absolute Nucleated RBC 0.00 Nucleated RBC % 0.0 Sodium 137 Potassium 3.9 Chloride 108 Carbon Dioxide 21 Anion Gap 8.0 BUN 10 Creatinine 0.6 Estimated GFR (MDRD) 109 Glucose 96 Calcium 8.6 Total Bilirubin 0.5 AST 13 ALT 15 Alkaline Phosphatase 64 Total Protein 6.4 L Albumin 4.0 Globulin 2.4 Albumin/Globulin Ratio 1.7 Lipase 28 Urine Color DARK YELLOW Urine Clarity CLOUDY Urine pH 6.0 Ur Specific [place] 1.025 Urine Protein 30 H Urine Glucose (UA) NEGATIVE Urine Ketones 15 H Urine Occult Blood SMALL H Urine Nitrite NEGATIVE Urine Bilirubin NEGATIVE Urine Urobilinogen 0.2 (NORMAL) Ur Leukocyte Esterase SMALL H Urine RBC 0-5 Urine WBC 6-10 H Ur Squamous Epith Cells MANY Squamous H Amorphous Sediment Rare Urine Bacteria Many H Urine Casts 6-10 Hyaline Casts Urine Mucus Few Strands Ur Microscopic Review INDICATED Urine Culture Comments NOT INDICATED Urine HCG, Qual NEGATIVE PD MEDICAL DECISION MAKING - ED course ED course: 46-year-old woman presents with chest and abdominal pain that she thinks is related to food poisoning. Benign exam and unremarkable vital signs. She does not appear ill or in significant pain. She also was developing a migraine aura on arrival and was treated with Reglan and Benadryl. This resolved the aura but she did develop some akathisia after that, at that point that was her only major complaint. This was treated with some Ativan. On reexamination at 7:35 PM she was feeling much better. She had passed p.o. challenge. On reexamination she was nontender on abdominal examination and appearing comfortable. Her chest and abdominal pain had resolved. The akathisia from the prior Reglan had resolved with the administration of Ativan. Discussed with her close return precautions including following up and returning in the morning if not better as we expect a rapid recovery. Departure - Departure Disposition: 01 Home, Self Care Clinical Impression: Diarrhea, Abdominal pain, Vomiting Condition: Good Record reviewed to determine appropriate education?: Yes Instructions: ED Diarrhea Viral, ED Nausea Vomiting Comments: Return tomorrow morning for reevaluation if not better, anytime for new or worsening symptoms.
[2021-12-17 17:37] LABS: GLUCOSE, URINE (UA) NEGATIVE (NEGATIVE); KETONES,URINE (UA) 15 mg/dL (NEGATIVE); LEUKOCYTE ESTERASE, URINE SMALL (NEGATIVE); NITRITE,URINE NEGATIVE (NEGATIVE); OCCULT BLOOD,URINE SMALL (NEGATIVE); PROTEIN,URINE 30 mg/dL (NEGATIVE); UROBILINOGEN,URINE 0.2 (NORMAL) E.U./dL (NORMAL)
[2021-12-17 17:42] LABS: BILIRUBIN,URINE NEGATIVE (NEGATIVE); CLARITY,URINE CLOUDY (CLEAR); HCG UR QUAL NEGATIVE; ICTOTEST,URINE NEGATIVE
[2021-12-17 17:51] LABS: AMORPHOUS SEDIMENT,UR Rare /LPF; BACTERIA,URINE Many /HPF (None Seen); MUCUS,URINE Few Strands; RBC,URINE 0-5 /HPF (0-5); SQUAMOUS EPITHELIAL CELL,UR MANY Squamous (<= Few)
[2021-12-17 17:52] LABS: CASTS, URINE 6-10 Hyaline Casts /LPF
[2021-12-17 18:25] LABS: BASOPHILS % (AUTO) 0.2 %; EOSINOPHILS # (AUTO) 0.1 10^3/uL (0.0-0.7); EOSINOPHILS % (AUTO) 0.4 %; HCT - HEMATOCRIT 40.2 % (37.0-47.0); LYMPHOCYTES % (AUTO) 8.9 %; MEAN CORPUSCULAR HEMOGLOBIN 30.8 pg (27.0-31.0); MEAN CORPUSCULAR HGB CONC 34.8 g/dL (32.0-36.0); MEAN CORPUSCULAR VOLUME 88.5 fL (81.0-99.0); MEAN PLATELET VOLUME 8.9 fL (7.9-10.8); MONOCYTES # (AUTO) 0.6 10^3/uL (0.0-1.0); MONOCYTES % (AUTO) 4.9 %; NEUTROPHILS # (AUTO) 9.5 10^3/uL (1.5-6.6); NEUTROPHILS % (AUTO) 85.2 %; PLT - PLATELET COUNT 216 10^3/uL (130-450); RED BLOOD COUNT 4.54 10^6/uL (4.20-5.40); RED CELL DISTRIBUTION WIDTH 12.7 % (12.0-15.0); WHITE BLOOD COUNT 11.2 x10^3/uL (4.8-10.8)
[2021-12-17 18:39] LABS: ALBUMIN/GLOBULIN RATIO 1.7 (1.0-2.2); BILIRUBIN,TOTAL 0.5 mg/dL (0.2-1.0); CALCIUM 8.6 mg/dL (8.5-10.3); CREATININE 0.6 mg/dL (0.4-1.0); POTASSIUM 3.9 mmol/L (3.5-5.0); TOTAL PROTEIN 6.4 g/dL (6.7-8.2)
[2021-12-17] MEDS ORDERED: LORazepam 2 MG/ML VIAL IVP STA (18:47)
[2021-12-17] MEDS ORDERED: ONDANSETRON ODT 4 MG TABLET TL STA (19:42)
[2021-12-17] MEDS ORDERED: HYDROcod/ACET 5/325 Prepack 4 PO STA (19:42)
[2021-12-17 19:55] VITALS: BP 113/62
== END 2021-12-17 19:55 | disposition home or self-care (01) ==
LOC: EDUNIT# → EDBD → ED 16:51
DX: R10.10 Upper abdominal pain, unspecified (principal); R11.10 Vomiting, unspecified; R19.7 Diarrhea, unspecified; R07.9 Chest pain, unspecified
CPT/HCPCS: 36415; 80053; 81001; 81025; 83690; 85025; 93005; 96361; 96374; 96375; 99284; J1200; J2060; J2765; Q0162; 81003; 87086

== ENCOUNTER 2022-05-08 04:27 | Emergency (ER) | payer MEDICAID ==
[2022-05-08 04:47] VITALS: BP 116/77
--- NOTE | 2022-05-08 05:02 | ED Physician Documentation ---
PD HPI LOWER EXT INJURY - Stated complaint Stated Complaint: HURT R ANKLE - Chief complaint Chief Complaint: Trauma Ext - History obtained from History obtained from: Patient - Additional information Additional information: Patient is a 46-year-old presenting for evaluation of right ankle pain. She re ports she was walking down steps around 11:30 PM when she missed a step and rolled her ankle. She denies head injury or LOC. She denies pain elsewhere.She did take ibuprofen without significant change. She denies prior injury to the ankle.Pain is worse with movements and palpation and better at rest. 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 : None HEENT: None Psych: Depression, Anxiety, ADD/ADHD Musculoskeletal: None Derm: None - Past Surgical History Past Surgical History: Yes General: Appendectomy Ortho: Other - Present Medications Home Medications: Ambulatory Orders Medication Instructions Recorded Confirmed Dextroamphetamine/Amphetamine 45 tab PO DAILY 11/25/16 05/08/22 [Adderall Xr 30 mg Capsule] Sertraline HCl [Zoloft] 50 mg PO DAILY 11/25/16 05/08/22 buPROPion [Wellbutrin Sr] 150 mg PO BID 11/25/16 05/08/22 Gabapentin 600 mg PO TID 02/13/19 05/08/22 Propranolol HCl 20 mg PO DAILY 02/13/19 05/08/22 - Allergies Allergies/Adverse Reactions: Allergies Allergy/AdvReac Type Severity Reaction Status Date / Time No Known Drug Allergies Allergy Verified 05/08/22 04:47 - Social History Does the pt smoke?: No Smoking Status: Never smoker Does the pt drink ETOH?: Yes ETOH Use: Wine, Beer, Liquor Does the pt have substance abuse?: No - Immunizations Immunizations are current?: No - POLST Patient has POLST: No PD ED PE NORMAL - General General: Alert and oriented X 3, No acute distress, Well developed/nourished - HEENT HEENT: Atraumatic - Cardiac Cardiac: Strong equal pulses - Respiratory Respiratory: No respiratory distress - Derm Derm: Warm and dry - Extremities Extremities: No deformity, No edema, No calf tenderness / cord - Neuro Neuro: No motor deficit, No sensory deficit PD ED PE EXPANDED - Extremities Feet visual: 1 - tenderness Results - Vitals Vitals: Vital Signs - 24 hr 05/08/22 04:41 Temperature 36.8 C Heart Rate 84 Respiratory 16 Rate Blood Pressure 116/77 O2 Saturation 98 Oxygen O2 Source Room air PD Medical Decision Making - ED course Complexity details: reviewed results, re-evaluated patient ED course: Patient presenting for evaluation of right ankle injury after rolling her ankle This evening. She is neurovascularly intact. There is no significant swelling on exam. x-rays obtained which I reviewed. There appears to be stable alignment. There is a slight irregularity on the lateral projection but I do not see any clear fractures. Radiology report is pending at time of discharge.I have placed the patient into an Aircast and given her crutches and instructed on continued supportive care. Patient is counseled on need for close follow-up As well as advised on concerning symptoms to return for. Departure - Departure Disposition: 01 Home, Self Care Clinical Impression: Right ankle injury Condition: Stable Instructions: ED Sprain Ankle Comments: I do not see a fracture/broken bone Or a dislocation on your ankle x-ray. The radiologist will also review these images later today. In the meanwhile we have placed you into an Aircast and would recommend you use crutches to keep the weight off the ankle until it is feeling better. I would continue with ice, elevating the ankle and continuing with anti-inflammatories such as ibuprofen or acetaminophen. If you have any worsening pain or any new symptoms please co nsider return to the ER. Otherwise I would follow-up with your primary care doctor in the next week. Discharge Date/Time: 05/08/22 05:59
--- OUTSIDE RECORDS SUMMARY | 2022-05-08 05:41 | EXTERNAL MEDICAL SUMMARY RPT | Continuity of Care Document ---
:1975 Author Organization [facility] Address [address] [place] [address] Phone Care Team Providers Name Role Phone Mitch Alejandra Unavailable Unavailable Allergies No information. Encounters No information. Functional Status No information. Immunizations No information. Medications No information. Problems No information. Procedures No information. Results/Labs test date author facility value unit interpret ation Result panel 1 (unknown) (no (unknown) (unknown) (no value) (units (unk nown) date) unknown) (unknown) (no (unknown) (unknown) [id number] (units (unkno wn) date) unknown) (unknown) (no (unknown) (unknown) 02/22/22 (units (unkno wn) date) unknown) (unknown) (no (unknown) (unknown) 46 yo female (units (un known) date) presents today unknown) for preventive exam and PAP. Patient states that her (unknown) (no (unknown) (unknown) Age/Sex: 46 / F (units (unknown) date) Date of Service: unknown) (unknown) (no (unknown) (unknown) Allergies (units (unkn own) date) unknown) (unknown) (no (unknown) (unknown) [place], [place] (units ( unknown) date) [id number] unknown) (unknown) (no (unknown) (unknown) Anxiety (units (unkno wn) date) (10/19/15) unknown) (unknown) (no (unknown) (unknown) Assessment + (units (u nknown) date) Plan unknown) (unknown) (no (unknown) (unknown) Attending Dr: (units ( unknown) date) Kun PURDY unknown) (unknown) (no (unknown) (unknown) Attention (units (unkn own) date) deficit unknown) hyperactivity disorder (ADHD) (10/19/15) (unknown) (no (unknown) (unknown) Brother (units (unknown) date) Suicide unknown) (unknown) (no (unknown) (unknown) Chronic fatigue (units (unknown) date) (10/19/15) unknown) (unknown) (no (unknown) (unknown) Chronic pain (units (u nknown) date) syndrome unknown) (05/24/16) (unknown) (no (unknown) (unknown) Chronic (units (unkno wn) date) right-sided low unknown) back pain (05/24/16) (unknown) (no (unknown) (unknown) : 1975 (units (unknown) date) Acct:[id number] unknown) (unknown) (no (unknown) (unknown) DUST MITES (units (unk nown) date) Allergy (Unknown, unknown) Uncoded 12/16/21 13:35) (unknown) (no (unknown) (unknown) Depression (units (unk nown) date) (10/19/15) unknown) (unknown) (no (unknown) (unknown) Dept at (units (unkno wn) date) . unknown) (unknown) (no (unknown) (unknown) Documented By: (units (unknown) date) Kun Maguire unknown) 02/22/22 1520 (unknown) (no (unknown) (unknown) Draft (units (unkno wn) date) unknown) (unknown) (no (unknown) (unknown) Episodic (units (unkno wn) date) tension-type unknown) headache, not intractable (10/19/15) (unknown) (no (unknown) (unknown) Family History (units (unknown) date) (Reviewed unknown) 11/04/21 @ 15:04 by Mitch Alejandra MD) (unknown) (no (unknown) (unknown) Family Practice (units (unknown) date) Office Visit unknown) (unknown) (no (unknown) (unknown) Father (units (unknown) date) Parkinsonism unknown) (unknown) (no (unknown) (unknown) [facility] ([facility] unknown) (unknown) (no (unknown) (unknown) History of back (units (unknown) date) surgery (-2008) unknown) (unknown) (no (unknown) (unknown) Hyperlipidemia (units (unknown) date) unknown) (unknown) (no (unknown) (unknown) Hypertension (units (u nknown) date) unknown) (unknown) (no (unknown) (unknown) Intake Note: (units (u nknown) date) unknown) (unknown) (no (unknown) (unknown) Intake performed (units (unknown) date) by: Noy Jacques unknown) L (unknown) (no (unknown) (unknown) Intake (units (unkno [...] Mitch Alejandra MD) (unknown) (no (unknown) (unknown) Mental and (units (unk nown) date) behavioral unknown) problem (unknown) (no (unknown) (unknown) Mother (units (unknown) date) Myocardial unknown) infarct (unknown) (no (unknown) (unknown) Orders (units (unkno wn) date) unknown) (unknown) (no (unknown) (unknown) Orders: (units (unkno wn) date) unknown) (unknown) (no (unknown) (unknown) PAP, Rfx hr (units (un known) date) HPV/ASCUS Today unknown) Z11.51 - Encounter for screening for human (unknown) (no (unknown) (unknown) PFSH (units (unkno wn) date) unknown) (unknown) (no (unknown) (unknown) POLLEN Allergy (units (unknown) date) (Unknown, Uncoded unknown) 12/16/21 13:35) (unknown) (no (unknown) (unknown) Patient: (units (unkno wn) date) Gabriella Martinez E unknown) MR#: [id number] (unknown) (no (unknown) (unknown) Reason For Visit (units (unknown) date) unknown) (unknown) (no (unknown) (unknown) Rosacea (units (unkno wn) date) (06/09/17) unknown) (unknown) (no (unknown) (unknown) S/P knee surgery (units (unknown) date) (-2007) unknown) (unknown) (no (unknown) (unknown) Signed By: (units (unk nown) date) unknown) (unknown) (no (unknown) (unknown) Smoking Status: (units (unknown) date) Former smoker unknown) (unknown) (no (unknown) (unknown) Surgical History (units (unknown) date) (Reviewed unknown) 11/04/21 @ 15:04 by Mitch Alejandra MD) (unknown) [...] (unknown) (unknown) Visit Reasons: (units (unknown) date) PE/ Pap 11 unknown) (unknown) (no (unknown) (unknown) Vitamin D (units (unkn own) date) deficiency unknown) (10/19/15) (unknown) (no (unknown) (unknown) cervix (units (unkno wn) date) unknown) (unknown) (no (unknown) (unknown) have occurred. (units (unknown) date) If there are any unknown) questions, please contact the Medical Records (unknown) (no (unknown) (unknown) last PAP was 4-5 (units (unknown) date) years ago. unknown) Patient has never had a mammogram. (unknown) (no (unknown) (unknown) may occur. (units (unk nown) date) Occasional unknown) wrong-word or 'sound-alike' substitutions may have (unknown) (no (unknown) (unknown) mold [MOLD] (units (un known) date) Allergy (Unknown, unknown) Verified 12/16/21 13:35) (unknown) (no (unknown) (unknown) occurred due to (units (unknown) date) the inherent unknown) limitations of voice recognition software. Please (unknown) (no (unknown) (unknown) papillomavirus (units (unknown) date) (HPV), Z12.4 - unknown) Encounter for screening for malignant neoplasm of (unknown) (no (unknown) (unknown) read the note (units ( unknown) date) carefully and unknown) recognize, using context, where these substitutions (unknown) (no (unknown) (unknown) software. (units (unkn own) date) Although every unknown) effort is made to edit content, gi technician errors Result panel 2 (unknown) (no (unknown) (unknown) (no value) (units (unk nown) date) unknown) (unknown) (no (unknown) (unknown) (1) Well woman (units (unknown) date) exam with routine unknown) gynecological exam: (unknown) (no (unknown) (unknown) [id number] (units (unkno wn) date) unknown) (unknown) (no (unknown) (unknown) 11/04/21 [History (units (unknown) date) Confirmed unknown) 02/22/22] (unknown) (no (unknown) (unknown) 02/22/22 (units (unkno wn) date) unknown) (unknown) (no (unknown) (unknown) 02/22/22] (units (unkn own) date) unknown) (unknown) (no (unknown) (unknown) 02/26/22 1635 (units ( unknown) date) unknown) (unknown) (no (unknown) (unknown) 15:26 (units (unkno wn) date) unknown) (unknown) (no (unknown) (unknown) 18. (units (unkno wn) date) unknown) (unknown) (no (unknown) (unknown) 46 yo female (units (un known) date) presents today for unknown) preventive exam and PAP. Patient states that her (unknown) (no (unknown) (unknown) 46-year-old (units (un known) date) female presents unknown) for well-woman exam/Pap. PCP is Dr. Alejandra. (unknown) (no (unknown) (unknown) Affect: normal (units (unknown) date) affect unknown) (unknown) (no (unknown) (unknown) Age/Sex: 46 / F (units (unknown) date) Date of Service: unknown) (unknown) (no (unknown) (unknown) All systems (units (un known) date) reviewed + are unknown) unremarkable except as noted in HPI and below (unknown) (no (unknown) (unknown) Allergies (units (unkn own) date) unknown) (unknown) (no (unknown) (unknown) [place], [place] (units ( unknown) date) [id number] unknown) (unknown) (no (unknown) (unknown) Anxiety (units (unkno wn) date) (10/19/15) unknown) (unknown) (no (unknown) (unknown) Appearance: (units (un known) date) grossly normal unknown) (unknown) (no (unknown) (unknown) Assessment + Plan (units (unknown) date) unknown) (unknown) (no (unknown) (unknown) Attending Dr: (units ( unknown) date) Kun PURDY unknown) (unknown) (no (unknown) (unknown) Attention deficit (units (unknown) date) hyperactivity unknown) disorder (ADHD) (10/19/15) (unknown) (no (unknown) (unknown) Attitude: (units (unkn own) date) cooperative unknown) (unknown) (no (unknown) (unknown) Auscultation: (units ( unknown) date) clear to unknown) auscultation bilaterally (unknown) (no (unknown) (unknown) Auscultation: (units ( unknown) date) normal bowel unknown) sounds (unknown) (no (unknown) (unknown) BMI 25.4 (units (unkno wn) date) unknown) (unknown) (no (unknown) (unknown) BP 110/74 (units (unkn own) date) unknown) (unknown) (no (unknown) (unknown) Bimanual Exam- (units (unknown) date) Adnexa, other: unknown) normal adnexae, normal and non-tender (unknown) (no (unknown) (unknown) Bimanual Exam- (units (unknown) date) Vagina + Uterus: unknown) normal bimanual exam, normal palpation, uterine (unknown) (no (unknown) (unknown) Blood Pressure (units (unknown) date) Location Lt radial unknown) (unknown) (no (unknown) (unknown) Breast inspection: (units (unknown) date) normal inspection unknown) of the breasts and normal inspection of the (unknown) (no (unknown) (unknown) Breast palpation: (units (unknown) date) normal palpation unknown) of the breasts, normal palpation of the (unknown) (no (unknown) (unknown) Brother (units (unknown) date) Suicide unknown) (unknown) (no (unknown) (unknown) Cardio (units (unkno wn) date) unknown) (unknown) (no (unknown) (unknown) Chest (units (unkno wn) date) unknown) (unknown) (no (unknown) (unknown) Chief Complaint (units (unknown) date) unknown) (unknown) (no (unknown) (unknown) Chief Complaint: (units (unknown) date) Well-woman unknown) exam/Pap (unknown) (no (unknown) (unknown) Chronic fatigue (units (unknown) date) (10/19/15) unknown) (unknown) (no (unknown) (unknown) Chronic pain (units (u nknown) date) syndrome unknown) (05/24/16) (unknown) (no (unknown) (unknown) Chronic (units (unkno wn) date) right-sided low unknown) back pain (05/24/16) (unknown) (no (unknown) (unknown) Clinical breast (units (unknown) date) exam, general unknown) physical exam unremarkable. Gynecologic exam (unknown) (no (unknown) (unknown) Cognition: normal (units (unknown) date) cognition unknown) (unknown) (no (unknown) (unknown) Confirmed (units (unkn own) date) 02/22/22] unknown) (unknown) (no (unknown) (unknown) Const (units (unkno wn) date) unknown) (unknown) (no (unknown) (unknown) : 1975 (units (unknown) date) Acct:[id number] unknown) (unknown) (no (unknown) (unknown) DUST MITES (units (unk nown) date) Allergy (Unknown, unknown) Uncoded 02/22/22 15:24) (unknown) (no (unknown) (unknown) Denies breast (units ( unknown) date) skin changes, unknown) Denies breast pain, Denies breast mass and Denies (unknown) (no (unknown) (unknown) Denies history of (units (unknown) date) abnormal Paps. unknown) , vaginal deliveries. Youngest child age (unknown) (no (unknown) (unknown) Denies vaginal (units (unknown) date) odor unknown) (unknown) (no (unknown) (unknown) Depression (units (unk nown) date) (10/19/15) unknown) (unknown) (no (unknown) (unknown) Dept at (units (unkno wn) date) . unknown) (unknown) (no (unknown) (unknown) Details: (units (unkno wn) date) unknown) (unknown) (no (unknown) (unknown) Documented By: (units (unknown) date) Kun Maguire unknown) 02/22/22 1520 (unknown) (no (unknown) (unknown) Ears: hearing (units ( unknown) date) grossly normal unknown) bilaterally, TM's normal bilaterally and EAC's (unknown) (no (unknown) (unknown) Effort + (units (unkno wn) date) Inspection: normal unknown) respiratory effort (unknown) (no (unknown) (unknown) Episodic (units (unkno wn) date) tension-type unknown) headache, not intractable (10/19/15) (unknown) (no (unknown) (unknown) Exam (units (unkno wn) date) unknown) (unknown) (no (unknown) (unknown) External Female (units (unknown) date) Exam: normal unknown) external appearance (unknown) (no (unknown) (unknown) Extrem (units (unkno wn) date) unknown) (unknown) (no (unknown) (unknown) Eyes (units (unkno wn) date) unknown) (unknown) (no (unknown) (unknown) Family History (units (unknown) date) (Reviewed 02/26/22 unknown) @ 16:31 by GURWINDER Reed) (unknown) (no (unknown) (unknown) Family Practice (units (unknown) date) Office Visit unknown) (unknown) (no (unknown) (unknown) Father (units (unknown) date) Parkinsonism unknown) (unknown) (no (unknown) (unknown) [facility]) (unknown) (no (unknown) (unknown) GI (units (unkno wn) date) unknown) (unknown) (no (unknown) (unknown) (units (unkno wn) date) unknown) (unknown) (no (unknown) (unknown) Gait: normal gait (units (unknown) date) unknown) (unknown) (no (unknown) (unknown) General: (units (unkno wn) date) appearance normal, unknown) both eyes and all related structures (unknown) (no (unknown) (unknown) General: (units (unkno wn) date) cooperative, unknown) healthy appearing and no acute distress (unknown) (no (unknown) (unknown) General: no (units (un known) date) rashes or lesions unknown) noted (unknown) (no (unknown) (unknown) General: normal (units (unknown) date) to inspection and unknown) no edema (unknown) (no (unknown) (unknown) General: patient (units (unknown) date) alert, patient unknown) awake and patient oriented x3 (unknown) (no (unknown) (unknown) HENMT (units (unkno wn) date) unknown) (unknown) (no (unknown) (unknown) HPI (units (unkno wn) date) unknown) (unknown) (no (unknown) (unknown) Head: normal to (units (unknown) date) inspection unknown) (unknown) (no (unknown) (unknown) Heart Sounds: S1 (units (unknown) date) normal, S2 normal, unknown) normal S1 and S2 and no murmurs (unknown) (no (unknown) (unknown) Height 175.26 cm (units (unknown) date) unknown) (unknown) (no (unknown) (unknown) History of back (units (unknown) date) surgery (-2008) unknown) (unknown) (no (unknown) (unknown) Hyperlipidemia (units (unknown) date) unknown) (unknown) (no (unknown) (unknown) Hypertension (units (u nknown) date) unknown) (unknown) (no (unknown) (unknown) Inspection: (units (un known) date) normal to unknown) inspection (unknown) (no (unknown) (unknown) Intake Note: (units (u nknown) date) unknown) (unknown) (no (unknown) (unknown) Intake performed (units (unknown) date) by: Noy Jacques unknown) (unknown) (no (unknown) (unknown) Intake (units (unkno wn) date) unknown) (unknown) (no (unknown) (unknown) Intake- Clincial (units (unknown) date) Staff unknown) (unknown) (no (unknown) (unknown) Irritable bowel (units (unknown) date) syndrome with unknown) diarrhea (unknown) (no (unknown) (unknown) Judgment: (units (unkn own) date) judgment good unknown) (unknown) (no (unknown) (unknown) Loc: [facility] (units (unkno wn) date) unknown) (unknown) (no (unknown) (unknown) MM screening (units (u nknown) date) mammo BI 4 Months unknown) Z12.31 - Encounter for screening mammogram for (unknown) (no (unknown) (unknown) Medical History (units (unknown) date) (Reviewed 02/26/22 unknown) @ 16:31 by GURWINDER Reed) (unknown) (no (unknown) (unknown) Medications (units (un known) date) unknown) (unknown) (no (unknown) (unknown) Mental Status: (units (unknown) date) mental status unknown) grossly normal (unknown) (no (unknown) (unknown) Mental and (units (unk nown) date) behavioral problem unknown) (unknown) (no (unknown) (unknown) Mood: congruent (units (unknown) date) mood unknown) (unknown) (no (unknown) (unknown) Mother (units (unknown) date) Myocardial infarct unknown) (unknown) (no (unknown) (unknown) Motor: muscle (units ( unknown) date) tone normal unknown) throughout (unknown) (no (unknown) (unknown) Mouth: oral (units (un known) date) mucosae normal and unknown) oropharynx normal (unknown) (no (unknown) (unknown) Multiple (units (unkno wn) date) nabothian cysts on unknown) cervix; otherwise normal appearing cervix. (unknown) (no (unknown) (unknown) Neck mass: No (units ( unknown) date) unknown) (unknown) (no (unknown) (unknown) Neck (units (unkno wn) date) unknown) (unknown) (no (unknown) (unknown) Neck: normal (units (u nknown) date) visual inspection unknown) and no lymphadenopathy (unknown) (no (unknown) (unknown) Neuro (units (unkno wn) date) unknown) (unknown) (no (unknown) (unknown) No (units (unkno wn) date) supraclavicular or unknown) infraclavicular lymphadenopathy. (unknown) (no (unknown) (unknown) Nose: external (units (unknown) date) nose normal and unknown) nasal mucous membranes and turbinates normal (unknown) (no (unknown) (unknown) Orders (units (unkno wn) date) unknown) (unknown) (no (unknown) (unknown) Orders: (units (unkno wn) date) unknown) (unknown) (no (unknown) (unknown) Other: (units (unkno wn) date) unknown) (unknown) (no (unknown) (unknown) Oxygen Delivery (units (unknown) date) Method room air unknown) (unknown) (no (unknown) (unknown) PAP, Rfx hr (units (un known) date) HPV/ASCUS 02/22/22 unknown) Z11.51 - Encounter for screening for human (unknown) (no (unknown) (unknown) PFSH (units (unkno wn) date) unknown) (unknown) (no (unknown) (unknown) PO QPM ##0 (units (unk nown) date) 05/24/16 [History unknown) Confirmed 02/22/22] (unknown) (no (unknown) (unknown) POLLEN Allergy (units (unknown) date) (Unknown, Uncoded unknown) 02/22/22 15:24) (unknown) (no (unknown) (unknown) Palpation: soft, (units (unknown) date) no unknown) hepatosplenomegaly , no guarding, no hernias, no masses and (unknown) (no (unknown) (unknown) Patient uses (units (u nknown) date) condoms when unknown) sexually active. Menses is slightly irregular but has (unknown) (no (unknown) (unknown) Patient will (units (u nknown) date) follow-up with her unknown) PCP for evaluation and management of all acute (unknown) (no (unknown) (unknown) Patient: (units (unkno wn) date) Gabriella Martinez E unknown) MR#: [id number] (unknown) (no (unknown) (unknown) Pelvic Support: (units (unknown) date) normal unknown) (unknown) (no (unknown) (unknown) Percussion: (units (un known) date) normal to unknown) percussion (unknown) (no (unknown) (unknown) Plan (units (unkno wn) date) unknown) (unknown) (no (unknown) (unknown) Position Sitting (units (unknown) date) unknown) (unknown) (no (unknown) (unknown) Psych (units (unkno wn) date) unknown) (unknown) (no (unknown) (unknown) Pulse 78 (units (unkno wn) date) unknown) (unknown) (no (unknown) (unknown) Pulse Oximetry (units (unknown) date) (%) 99 unknown) (unknown) (no (unknown) (unknown) Pulse Source (units (u nknown) date) Monitor unknown) (unknown) (no (unknown) (unknown) QPM ##0 05/24/16 (units (unknown) date) [History Confirmed unknown) 02/22/22] (unknown) (no (unknown) (unknown) ROS (units (unkno wn) date) unknown) (unknown) (no (unknown) (unknown) Rate: regular (units ( unknown) date) rate unknown) (unknown) (no (unknown) (unknown) Reason For Visit (units (unknown) date) unknown) (unknown) (no (unknown) (unknown) Reports as per (units (unknown) date) HPI, Denies unknown) genital lesions, Denies nipple discharge, Denies (unknown) (no (unknown) (unknown) Resp (units (unkno wn) date) unknown) (unknown) (no (unknown) (unknown) Respiration 16 (units (unknown) date) unknown) (unknown) (no (unknown) (unknown) Rhythm: regular (units (unknown) date) rhythm unknown) (unknown) (no (unknown) (unknown) Rosacea (units (unkno wn) date) (06/09/17) unknown) (unknown) (no (unknown) (unknown) S/P knee surgery (units (unknown) date) (-2006) unknown) (unknown) (no (unknown) (unknown) Sensory Exam: no (units (unknown) date) sensory deficits unknown) noted (unknown) (no (unknown) (unknown) She does have a (units (unknown) date) history of uterine unknown) ablation 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 (unknown) (no (unknown) (unknown) Signed By: (units (unk nown) date) <Electronically unknown) signed by Kun Maguire> (unknown) (no (unknown) (unknown) Signed (units (unkno wn) date) unknown) (unknown) (no (unknown) (unknown) Skin (units (unkno wn) date) unknown) (unknown) (no (unknown) (unknown) Skin/Breast (units (un known) date) unknown) (unknown) (no (unknown) (unknown) Smoking Status: (units (unknown) date) Former smoker unknown) (unknown) (no (unknown) (unknown) Speculum Exam - (units (unknown) date) Vagina: normal unknown) appearance of the vagina and normal vaginal (unknown) (no (unknown) (unknown) Speech: speech (units (unknown) date) normal unknown) (unknown) (no (unknown) (unknown) Surgical History (units (unknown) date) (Reviewed 02/26/22 unknown) @ 16:31 by GURWINDER Reed) (unknown) (no (unknown) (unknown) This note may (units ( unknown) date) have been all or unknown) partially generated using voice recognition (unknown) (no (unknown) (unknown) Thought Content: (units (unknown) date) normal unknown) (unknown) (no (unknown) (unknown) Thought Process: (units (unknown) date) normal unknown) (unknown) (no (unknown) (unknown) Throat: posterior (units (unknown) date) oropharynx normal unknown) (unknown) (no (unknown) (unknown) Thyroid: thyroid (units (unknown) date) normal unknown) (unknown) (no (unknown) (unknown) Tobacco + (units (unkn own) date) Substance Use unknown) (unknown) (no (unknown) (unknown) Tobacco Status (units (unknown) date) unknown) (unknown) (no (unknown) (unknown) Uncomplicated (units ( unknown) date) opioid dependence unknown) (05/24/16) (unknown) (no (unknown) (unknown) Visit Reasons: (units (unknown) date) PE/ Pap 11 unknown) (unknown) (no (unknown) (unknown) Vitals (units (unkno wn) date) unknown) (unknown) (no (unknown) (unknown) Vitamin D (units (unkn own) date) deficiency unknown) (10/19/15) (unknown) (no (unknown) (unknown) Weight 78.131 kg (units (unknown) date) unknown) (unknown) (no (unknown) (unknown) [History (units (unkno wn) date) Confirmed unknown) 02/22/22] (unknown) (no (unknown) (unknown) and chronic (units (un known) date) medical conditions unknown) and other preventative health measures. (unknown) (no (unknown) (unknown) axillae and no (units (unknown) date) axillary unknown) lymphadenopathy (unknown) (no (unknown) (unknown) axillae (units (unkno wn) date) unknown) (unknown) (no (unknown) (unknown) bupropion HCl 150 (units (unknown) date) mg 24 hr tablet, unknown) extended release 450 mg PO DAILY 11/04/21 (unknown) (no (unknown) (unknown) cervix (units (unkno wn) date) unknown) (unknown) (no (unknown) (unknown) cholecalciferol (units (unknown) [...] mg PO QAM (unknown) (no (unknown) (unknown) discharge (units (unkn own) date) unknown) (unknown) (no (unknown) (unknown) gabapentin 300 mg (units (unknown) date) capsule unknown) (Neurontin) 300 mg PO DAILY 11/04/21 [History (unknown) (no (unknown) (unknown) have occurred. If (units (unknown) date) there are any unknown) questions, please contact the Medical Records (unknown) (no (unknown) (unknown) last PAP was 4-5 (units (unknown) date) years ago. Patient unknown) has never had a mammogram. (unknown) (no (unknown) (unknown) malignant (units (unkn own) date) neoplasm of breast unknown) (unknown) (no (unknown) (unknown) may occur. (units (unk nown) date) Occasional unknown) wrong-word or 'sound-alike' substitutions may have (unknown) (no (unknown) (unknown) mold [MOLD] (units (un known) date) Allergy (Unknown, unknown) Verified 02/22/22 15:24) (unknown) (no (unknown) (unknown) nipple discharge (units (unknown) date) unknown) (unknown) (no (unknown) (unknown) no bleeding (units (un known) date) between menses, no unknown) prolonged menses, no excessively heavy menses. (unknown) (no (unknown) (unknown) nontender (units (unkn own) date) unknown) (unknown) (no (unknown) (unknown) normal (units (unkno wn) date) unknown) (unknown) (no (unknown) (unknown) occurred due to (units (unknown) date) the inherent unknown) limitations of voice recognition software. Please (unknown) (no (unknown) (unknown) omega (units (unkno wn) date) [id number] oil unknown) 1,000 mg (120 mg-180 mg) capsule (Fish Oil) 1,000 mg PO (unknown) (no (unknown) (unknown) papillomavirus (units (unknown) date) (HPV), Z12.4 - unknown) Encounter for screening for malignant neoplasm of (unknown) (no (unknown) (unknown) prolapse (units (unkno wn) date) symptoms, Denies unknown) sexual dysfunction, Denies vaginal discharge and (unknown) (no (unknown) (unknown) propranolol 20 mg (units (unknown) date) tablet 20 mg PO unknown) BID PRN anxiety/panic 05/12/19 [History (unknown) (no (unknown) (unknown) read the note (units ( unknown) date) carefully and unknown) recognize, using context, where these substitutions (unknown) (no (unknown) (unknown) recommendations. (units (unknown) date) unknown) (unknown) (no (unknown) (unknown) remarkable for (units (unknown) date) multiple nabothian unknown) cysts on the cervix but otherwise (unknown) (no (unknown) (unknown) require no (units (unk nown) date) action. Pap unknown) performed; will contact patient with results and (unknown) (no (unknown) (unknown) sertraline 100 mg (units (unknown) date) tablet 150 mg PO unknown) DAILY 11/04/21 [History Confirmed 02/22/22] (unknown) (no (unknown) (unknown) size normal, (units (u nknown) date) consistency unknown) normal, normal palpation, uterine mobility normal, (unknown) (no (unknown) (unknown) software. (units (unkn own) date) Although every unknown) effort is made to edit content, gi technician errors (unknown) (no (unknown) (unknown) then. Patient (units ( unknown) date) denies unknown) gynecological symptoms. (unknown) (no (unknown) (unknown) unremarkable. (units ( unknown) date) Discussed with the unknown) patient that nabothian cysts are benign and (unknown) (no (unknown) (unknown) uterine shape (units ( unknown) date) normal and unknown) non-tender Social History date description facility 2022-02-22 00:00 Ex-smoker ([facility] Vital Signs date measurement value units 2022-02-22 00:00 BMI 25.4 kg/m2 2022-02-22 00:00 BP_diastolic 74 mmHg 2022-02-22 00:00 BP_systolic 110 mmHg 2022-02-22 00:00 heart_rate 78 /min 2022-02-22 00:00 height_metric 175.26 cm 2022-02-22 00:00 height_standard 69 in 2022-02-22 00:00 o2_saturation 99 % 2022-02-22 00:00 respiration_rate 16 /min 2022-02-22 00:00 weight_metric 78.13 kg 2022-02-22 00:00 weight_standard 172.25 lb
--- NOTE | 2022-05-08 09:34 | XRAY Report ---
PROCEDURE: Ankle 3 View RT INDICATIONS: Twisted R ankle, c/o pain TECHNIQUE: 3 views of the ankle were acquired. COMPARISON: None FINDINGS: Bones: On the lateral view, there is a potential avulsion fracture seen involving the distal anterio r tibia. No additional fractures or dislocations. Ankle mortise is normally aligned. No suspicious bony lesi ons. The talar dome demonstrates an unremarkable appearance. Incidental note is made of an accesso ry ossicle, an os peroneum. Soft tissues: There is a potential tibiotalar joint effusion. IMPRESSION: Potential avulsion fracture seen involving the anterior distal tibia seen on one image o nly. If it would be helpful for clinical management decision making, please consider a dedicated ankle CT for further evaluation. Note: No significant discrepancy from the preliminary report. Reviewed by: Amado Wilcox MD on 05/08/2022 8:33 AM [facility] Approved by: Amado Wilcox MD on 05/08/2022 8:33 AM [facility] Station ID: [id number]
== END 2022-05-08 05:59 | disposition home or self-care (01) ==
LOC: ED 04:27
DX: S99.911A Unspecified injury of right ankle, initial encounter (principal); W10.9XXA Fall (on) (from) unspecified stairs and steps, initial encounter; X50.1XXA Overexertion from prolonged static or awkward postures, initial encounter
CPT/HCPCS: 99283

== ENCOUNTER 2022-05-24 13:30 | Outpatient (CLI) | payer MEDICAID ==
[2022-05-24 22:10] LABS: BACTERIAL VAGINOSIS DNA NEGATIVE (NEGATIVE)
[2022-05-24 22:11] LABS: CANDIDA GLABRATA DNA NEGATIVE (NEGATIVE); CANDIDA GROUP DNA NEGATIVE (NEGATIVE); CANDIDA KRUSEI DNA NEGATIVE (NEGATIVE); TRICHOMONAS VAGINALIS DNA NEGATIVE (NEGATIVE)
[2022-05-25 00:18] LABS: CHLAMYDIA TRACHOMATIS DNA NEGATIVE (NEGATIVE); NEISSERIA GONORRHOEAE DNA NEGATIVE (NEGATIVE)
== END 2022-05-24 13:45 | disposition home or self-care (01) ==
LOC: LAB.N 13:30
PROVIDERS: ATTEND Physician Assistant Medical
DX: R30.0 Dysuria (principal)
CPT/HCPCS: 81514; 87086; 87491; 87591; 87661

== ENCOUNTER 2023-09-10 22:13 | Emergency (ER) | payer MEDICAID ==
[2023-09-10 22:33] LABS: BILIRUBIN,URINE NEGATIVE (NEGATIVE); GLUCOSE, URINE (UA) NEGATIVE (NEGATIVE); KETONES,URINE (UA) NEGATIVE (NEGATIVE); LEUKOCYTE ESTERASE, URINE LARGE (NEGATIVE); NITRITE,URINE POSITIVE (NEGATIVE); OCCULT BLOOD,URINE MODERATE (NEGATIVE); PROTEIN,URINE 30 mg/dL (NEGATIVE); UROBILINOGEN,URINE 0.2 (NORMAL) E.U./dL (NORMAL)
[2023-09-10 22:34] LABS: CLARITY,URINE CLOUDY (CLEAR)
--- NOTE | 2023-09-10 22:42 | ED Physician Documentation ---
PD HPI FEMALE - Stated complaint Stated Complaint: - Chief complaint Chief Complaint: UTI - History obtained from History obtained from: Patient - Additional information Additional information: HPI from patient. Patient complains of 5 days of burning dysuria, urinary urgency, sensation of incomplete voiding. Has had similar symptoms in the past associated with UTI. Denies back pain, denies fever PD PAST MEDICAL HISTORY - Past Medical History Past Medical History: Yes Cardiovascular: None Respiratory: None Neuro: None Endocrine/Autoimmune: None GI: None [employer]SIAN [employer]: None : None HEENT: None Psych: Depression, Anxiety, ADD/ADHD Musculoskeletal: None Derm: None - Past Surgical History Past Surgical History: Yes General: Appendectomy Ortho: Other - Present Medications Home Medications: Ambulatory Orders Medication Instructions Recorded Confirmed Dextroamphetamine/Amphetamine 45 tab PO DAILY 11/25/16 05/08/22 [Adderall Xr 30 mg Capsule] Sertraline HCl [Zoloft] 50 mg PO DAILY 11/25/16 05/08/22 buPROPion [Wellbutrin Sr] 150 mg PO BID 11/25/16 05/08/22 Gabapentin 600 mg PO TID 02/13/19 05/08/22 Propranolol HCl 20 mg PO DAILY 02/13/19 05/08/22 Nitrofurantoin [Macrobid] 100 mg PO BID #10 cap 09/10/23 - Allergies Allergies/Adverse Reactions: Allergies Allergy/AdvReac Type Severity Reaction Status Date / Time No Known Drug Allergies Allergy Verified 09/10/23 22:27 - Social History Does the pt smoke?: No Smoking Status: Never smoker Does the pt drink ETOH?: Yes Does the pt have substance abuse?: No - Immunizations Immunizations are current?: No - POLST Patient has POLST: No PD ED PE NORMAL - Vitals Vital signs reviewed: Yes - General General: Alert and oriented X 3, No acute distress, Well developed/nourished - Abdomen Abdomen: Soft, Non tender - Back Back: No CVA TTP Results - Vitals Vitals: Vital Signs - 24 hr 09/10/23 09/10/23 22:25 22:55 Temperature 36.9 C Heart Rate 71 80 Respiratory 18 16 Rate Blood Pressure 126/71 129/78 O2 Saturation 98 99 Oxygen O2 Source Room air - Labs Labs: Laboratory Tests 09/10/23 22:30 Urine Color YELLOW Urine Clarity CLOUDY Urine pH 6.0 Ur Specific [place] 1.020 Urine Protein 30 H Urine Glucose (UA) NEGATIVE Urine Ketones NEGATIVE Urine Occult Blood MODERATE H Urine Nitrite POSITIVE H Urine Bilirubin NEGATIVE Urine Urobilinogen 0.2 (NORMAL) Ur Leukocyte Esterase LARGE H Urine RBC None Seen Urine WBC >25 H Ur Squamous Epith Cells FEW Squamous Urine Bacteria Many H Urine Culture Comments INDICATED PD Medical Decision Making - ED course Complexity details: considered differential, d/w patient ED course: Symptoms are suggestive of UTI, and urinalysis results strongly support this diagnosis with positive nitrates, many bacteria, greater than 25 WBC/hpf, and few squamous cells. Results d/w patient, given 100mg PO nitrofurantoin and e- prescribed 5-day course of BID nitrofurantoin to her pharmacy of choice. She has pyridium at home and instructed to continue taking this per label instructions but limit to two more days (so as to not mask symptoms 48 hours into the course of the abx) Departure - Departure Disposition: 01 Home, Self Care Clinical Impression: Urinary tract infection Condition: Good Instructions: ED UTI Cystitis Female Prescriptions: Nitrofurantoin [Macrobid] 100 mg PO BID #10 cap Comments: Your symptoms are consistent with a urinary tract infection and the results of your urinalysis tonight confirm this diagnosis. You were given the first dose of antibiotic (nitrofurantoin) in the emergency department, and I have electronically submitted a prescription for a 5-day course of this antibiotic to the [facility] pharmacy in [place]. As we discussed, you should have significant improvement in your symptoms within no more than 2 days into the course of the antibiotic. If you find that your symptoms are the same and/or worse 3 more days into the antibiotic, seek follow-up with your primary care provider for reevaluation. You can always return to the emergency department if your symptoms worsen to the extent that you feel you need emergent reevaluation, or if you develop new/concerning signs/symptoms (such as fever, back pain). Discharge Date/Time: 09/10/23 22:55
[2023-09-10 22:46] LABS: RBC,URINE None Seen /HPF (0-5); WBC,URINE >25 /HPF (0-5)
[2023-09-10 22:47] LABS: BACTERIA,URINE Many /HPF (None Seen); SQUAMOUS EPITHELIAL CELL,UR FEW Squamous (<= Few)
[2023-09-10] MEDS: NITROFURANTOIN MACRO 100 MG CAPSULE PO STA (22:54)
[2023-09-10 23:03] VITALS: BP 129/78; O2SAT 99
== END 2023-09-10 22:55 | disposition home or self-care (01) ==
LOC: ED 22:13
DX: N39.0 Urinary tract infection, site not specified (principal)
CPT/HCPCS: 81001; 87086; 99283; A9270; 87181

== ENCOUNTER 2023-11-22 12:15 | Outpatient (CLI) | payer MEDICAID ==
[2023-11-23 00:52] LABS: CHLAMYDIA TRACHOMATIS DNA NEGATIVE (NEGATIVE); NEISSERIA GONORRHOEAE DNA NEGATIVE (NEGATIVE); TRICHOMONAS VAGINALIS DNA NEGATIVE (NEGATIVE)
== END 2023-11-22 12:30 | disposition home or self-care (01) ==
LOC: LAB.N 12:15
PROVIDERS: ATTEND Physician Assistant Medical
DX: N39.0 Urinary tract infection, site not specified (principal); Z11.3 Encounter for screening for infections with a predominantly sexual mode of transmission; R30.0 Dysuria
CPT/HCPCS: 87077; 87086; 87181; 87491; 87591; 87661